=== PATIENT | male | born 1950 | race Caucasian/White ===

== ENCOUNTER → 2017-09-20 | Outpatient (CLI) | payer MEDICARE ==
--- NOTE | 2017-09-20 17:44 | ECHOF ---
Referral Reason:E78.5 Hyperlipidemia I25.1Coronary Artery Disease MEASUREMENTS -------- HEIGHT: 172.7 cm WEIGHT: 90.7 kg BP: IVSd: 1.1 cm (0.6 - 1.1) LVIDd: 5.0 cm (3.9 - 5.3) LVPWd: 1.2 cm (0.6 - 1.1) IVSs: 1.4 cm LVIDs: 4.1 cm LVPWs: 1.4 cm LAESV Index (A-L): 30.58 ml/m Ao Diam: 3.3 cm (2.0 - 3.7) AV Cusp: 1.5 cm (1.5 - 2.6) LA Diam: 4.3 cm (2.7 - 3.8) MV EXCURSION: 19.436 mm (> 18.000) MV EF SLOPE: 101 mm/s (70 - 150) EPSS: 1.5 cm MV E Walter: 0.80 m/s MV DecT: 178 ms MV A Walter: 0.63 m/s MV E/A Ratio: 1.26 RAP: 5.00 mmHg RVSP: 32.38 mmHg FINDINGS -------- Sinus rhythm. This was a technically adequate study. The left ventricular size is normal. There is borderline concentric left ventricular hypertrophy. Overall left ventricular systolic function is normal with, an EF between 55 - 60 %. The right ventricle is normal in size. LA is midly dilated 29-33ml/m2. The right atrial size is normal. There is mild aortic valve sclerosis. There is no evidence of aortic regurgitation. The mitral valve is normal. Mild mitral regurgitation is present. Mild tricuspid regurgitation present. There is no evidence of pulmonary hypertension. The right v entricular systolic pressure, as measured by Doppler, is 32.38mmHg. There is no pulmonic regurgitation present. The aortic root size is normal. There is no pericardial effusion. CONCLUSIONS -------- 1. Sinus rhythm. 2. The left ventricular size is normal. 3. There is borderline concentric left ventricular hypertrophy. 4. Overall left ventricular systolic function is normal with, an EF between 55 - 60 %. 5. LA is midly dilated 29-33ml/m2. 6. There is mild aortic valve sclerosis. 7. Mild mitral regurgitation is present. 8. Mild tricuspid regurgitation present. 9. There is no evidence of pulmonary hypertension. 10. There is no pulmonic regurgitation present. 11. The aortic root size is normal. 12. There is no pericardial effusion. JEWEL WAXER: Keyana Reed RDCS
--- NOTE | 2017-09-20 18:34 | P.STRESS ---
- Stress Test Note Stress Test Results/Findings: Exam Performed: stress test Exam Date: 09/20/17 Reason for Exam: CAD Height: 5 ft 8 in Weight: 90.718 kg Protocol: Arnel Stage: 1 Duration of Exercise: 4:30 Resting Heart Rate: 61 Resting Blood Pressure: 144/77 Maximum Achieved Heart Rate: 133 Maximum Achieved Blood Pressure: 195/69 85% PMHR: 128 100% PMHR: 151 METS: 6.4 Technologist Comment: Stress Test Results/Findings: This 67-year-old gentleman. He is being evaluated for cardiac status. Patient has history of hypertension and hypercholesterolemia. Baseline EKG showed sinus rhythm with normal [place] interval, QRS duration. Blood pressure at rest is 144/77 with pulse rate of 61. Patient walked on the Arnel protocol for 4 minutes and 30 seconds achieving a maximal heart rate of 133 with a blood pressure 180/73. EKGs taken during and after the x-ray did not reveal any changes to sized ischemia. Final impression #1. Negative stress test #2 patient did not express any chest pain #3. No arrhythmias were detected #4 patient. Excess capacity is fair.
--- NOTE | 2017-09-24 11:22 | EST ---
- Stress Test Note Stress Test Results/Findings: Exam Performed: stress test Exam Date: 09/20/17 Reason for Exam: CAD Height: 5 ft 8 in Weight: 90.718 kg Protocol: Arnel Stage: 1 Duration of Exercise: 4:30 Resting Heart Rate: 61 Resting Blood Pressure: 144/77 Maximum Achieved Heart Rate: 133 Maximum Achieved Blood Pressure: 195/69 85% PMHR: 128 100% PMHR: 151 METS: 6.4 Technologist Comment: Stress Test Results/Findings: This 67-year-old gentleman. He is being evaluated for cardiac status. Patient has history of hypertension and hypercholesterolemia. Baseline EKG showed sinus rhythm with normal [place] interval, QRS duration. Blood pressure at rest is 144/77 with pulse rate of 61. Patient walked on the Arnel protocol for 4 minutes and 30 seconds achieving a maximal heart rate of 133 with a blood pressure 180/73. EKGs taken during and after the x-ray did not reveal any changes to sized ischemia. Final impression #1. Negative stress test #2 patient did not express any chest pain #3. No arrhythmias were detected #4 patient. Excess capacity is fair. MTDD
== END | disposition home or self-care (01) ==
LOC: RADNMMAIN 10:20
PROVIDERS: ATTEND Family Medicine
DX: I08.1 Rheumatic disorders of both mitral and tricuspid valves (principal); E78.5 Hyperlipidemia, unspecified; I25.10 Atherosclerotic heart disease of native coronary artery without angina pectoris
CPT/HCPCS: 93017; 93306

== ENCOUNTER → 2020-05-26 | Outpatient (CLI) | payer MEDICARE | END | disposition home or self-care (01) | LOC: LABWHC1 11:52 | PROVIDERS: ATTEND Family Medicine | DX: Z03.818 Encounter for observation for suspected exposure to other biological agents ruled out (principal) | CPT/HCPCS: U0003; C9803 ==

== ENCOUNTER → 2020-11-15 | Outpatient (CLI) | payer MEDICARE | END | disposition home or self-care (01) | LOC: LABWHC1 10:26 | PROVIDERS: ATTEND Family Medicine | DX: R60.0 Localized edema (principal) | CPT/HCPCS: 36415; 83880; 85379 ==

== ENCOUNTER → 2020-12-15 | Outpatient (CLI) | payer MEDICARE ==
--- NOTE | 2021-01-16 14:27 | EST ---
EVENT MONITOR The patient was monitored between December 15 and 13 January 2021. The rhythm strip revealed sinus mechanism with normal conduction. There was no episode of atrial fibrillation or ventricular tachycardia. No pauses were noted. MMSONJA / PARISN: [id number] / MTDD
== END | disposition home or self-care (01) ==
LOC: RADECHMAIN 11:47
PROVIDERS: ATTEND Family Medicine
DX: I49.9 Cardiac arrhythmia, unspecified (principal)
CPT/HCPCS: 93270

== ENCOUNTER 2021-02-26 06:54 | Observation (INO) | payer MEDICARE ==
[2021-02-26] MEDS ORDERED: DILTIAZEM DRIP BOLUS FROM BAG 1 MG SOLN IV ONE (07:14)
--- NOTE | 2021-02-26 07:14 | ED ---
Chest Pain HPI - General Chief Complaint: Chest Pain Stated Complaint: Chest pain Time Seen by Provider: 02/26/21 07:00 Source: patient, EMS Mode of arrival: EMS Limitations: no limitations - History of Present Illness Initial Comments: Patient is a 70-year-old male with past medical history of paroxysmal A. fib who presents emergency Department with reported chest pain. States that it woke him from sleep at 5 AM this morning area and he did take a 325 aspirin and his beta addie. States that the pain persisted and therefore he called EMS. Described as a substernal pressure with radiation into his left shoulder. Reports a history of an NM in 1995 but had a clean cath at that time. He has not followed up with a senior energy market coordinator since. States that his A. fib is managed by his primary care doctor. He is not on any anticoagulation at this time. He denies any contraindication to anticoagulation. No history of hemorrhagic strokes or bleeding peptic ulcers. EMS provided the patient with the nitro and he states that his discomfort is completely gone at this time. He denies any fevers, chills or cough. No ripping or tearing sensation to his back. He denies any headaches, visual changes or recent head trauma. No other alleviating, precipitating or modifying factors - Related Data Home Medications Medication Instructions Recorded Confirmed Allopurinol [Zyloprim] 100 mg PO DAILY 02/26/21 02/26/21 Aspirin EC [Ecotrin] 325 mg PO DAILY 02/26/21 02/26/21 Bisoprolol/Hydrochlorothiazide 1 tab PO DAILY 02/26/21 02/26/21 [Bisoprolol/Hydrochlorothiazide 10-6.25 mg] Furosemide [Lasix] 20 mg PO DAILY 02/26/21 02/26/21 Levothyroxine Sodium [Synthroid] 25 mcg PO DAILY 02/26/21 02/26/21 Losartan Potassium 100 mg PO DAILY 02/26/21 02/26/21 Potassium Chloride ER [K-Dur 20] 20 meq PO DAILY 02/26/21 02/26/21 Tamsulosin [Flomax] 0.4 mg PO DAILY 02/26/21 02/26/21 Previous Rx's Medication Instructions Recorded Apixaban [Eliquis] 5 mg PO BID tab 02/27/21 Apixaban [Eliquis] 5 mg PO BID #60 tab 02/27/21 Allergies Allergy/AdvReac Type Severity Reaction Status Date / Time Penicillins Allergy Anaphylaxis Verified 02/26/21 09:46 sulfamethoxazole Allergy Anaphylaxis Verified 02/26/21 09:46 [From Bactrim] trimethoprim [From Bactrim] Allergy Anaphylaxis Verified 02/26/21 09:46 Review of Systems ROS Statement: Those systems with pertinent positive or pertinent negative responses have been documented in the HPI. ROS Other: All systems not noted in ROS Statement are negative. EKG Findings - EKG Comments: EKG Findings:: EKG at 7:06 am demonstrates A. fib with a ventricular rate of 152. QRS 104. QTC 480. No acute ST segment elevations. Mild ST depression in the anterior lateral leads likely rate dependent. Repeat EKG conducted at 723 demonstrates that the patient has converted to normal sinus rhythm. Rate of 69. LA interval 150. QRS 106. QTC of 432. No acute ST segment elevation. Inverted T-wave with some ST depression in lead 3 Past Medical History Past Medical History: Atrial Fibrillation, Hypertension, Myocardial Infarction ([place]) History of Any Multi-Drug Resistant Organisms: None Reported Past Surgical History: Cholecystectomy, Heart Catheterization Past Psychological History: No Psychological Hx Reported Smoking Status: Never smoker Past Alcohol Use History: None Reported Past Drug Use History: None Reported General Exam Limitations: no limitations General appearance: alert, in no apparent distress Head exam: Present: atraumatic, normocephalic, normal inspection Eye exam: Present: normal appearance, PERRL, EOMI. Absent: scleral icterus, conjunctival injection, periorbital swelling ENT exam: Present: normal exam, mucous membranes moist Neck exam: Present: normal inspection. Absent: tenderness, meningismus, lymphadenopathy Respiratory exam: Present: normal lung sounds bilaterally. Absent: respiratory distress, wheezes, rales, rhonchi, stridor Cardiovascular Exam: Present: tachycardia, irregular rhythm, normal heart sounds. Absent: systolic murmur, diastolic murmur, rubs, gallop, clicks GI/Abdominal exam: Present: soft, normal bowel sounds. Absent: distended, tenderness, guarding, rebound, rigid Extremities exam: Present: normal inspection, full ROM, normal capillary refill. Absent: tenderness, pedal edema, joint swelling, calf tenderness Back exam: Present: normal inspection Neurological exam: Present: alert, oriented X3, CN II-XII intact Psychiatric exam: Present: normal affect, normal mood Skin exam: Present: warm, dry, intact, normal color. Absent: rash Course Vital Signs 02/26/21 02/26/21 02/26/21 06:58 07:22 07:54 Temperature 99.1 F Pulse Rate 146 H 66 68 Pulse Rate [ Right Supine] Respiratory 18 18 Rate Blood Pressure 137/90 157/85 O2 Sat by Pulse 96 98 Oximetry 02/26/21 02/26/21 02/26/21 09:05 09:28 09:37 Temperature Pulse Rate 60 55 L Pulse Rate [ 55 L Right Supine] Respiratory 18 16 18 Rate Blood Pressure 154/84 149/97 O2 Sat by Pulse 98 98 Oximetry Chest Pain MDM - MDM Upon arrival patient is placed into room 1. Thorough history and physical exam was performed. He has already taken a full dose aspirin. Nitro was provided by EMS. Patient is pain-free at this time. 12-lead EKG was performed which demonstrates A. fib with a rapid ventricular rate of 160. IV is established. Cardizem bolus and Cardizem drip is ordered. Lab studies conducted and the patient is sent for chest x-ray. Laboratory studies are reviewed. First troponin is negative. TSH 4.4. Chest x-ray demonstrated some linear atelectasis. Patient does convert on his own without medication administration. He has no contraindications to anticoagulation and therefore he is placed on a heparin drip. I recommended hospital admission to trend serial troponins. Patient has already taken his beta addie at home. He agreed to this. I spoke with Dr. Funk who agreed to admit the patient. Cardiology will be placed on consult. He is currently awaiting a bed on the floor Critical Care Time Critical Care Time: Yes Critical Care Time: 32 minutes Disposition Clinical Impression: Chest pain, Atrial fibrillation with RVR Disposition: ADMITTED IP TO THIS HOSP Condition: Stable Is patient prescribed a controlled substance at d/c from ED?: No Decision to Admit Reason: Admit from EC Decision Date: 02/26/21 Decision Time: 09:07
[2021-02-26] MEDS ORDERED: DILTIAZEM 125 MG in SODIUM CHLORIDE 0.9% 100 ML IV SCH (07:15)
[2021-02-26 07:30] LABS: Basophils # (A) 0.1 k/uL (0-0.2); Basophils % (A) 1 %; Eosinophils # (A) 0.1 k/uL (0-0.7); Eosinophils % (A) 2 %; HCT 46.3 % (39.0-53.0); Lymphocytes # (A) 2.4 k/uL (1.0-4.8); Lymphocytes % (A) 26 %; MCH 34.3 pg (25.0-35.0); MCHC 34.6 g/dL (31.0-37.0); MCV 99.1 fL (80.0-100.0); Mean Platelet Volume 8.1; Monocytes # (A) 0.6 k/uL (0-1.0); Monocytes % (A) 7 %; Neutrophils # (A) 5.8 k/uL (1.3-7.7); Neutrophils % (A) 62 %; Platelet Count 210 k/uL (150-450); RBC 4.67 m/uL (4.30-5.90); RDW 12.3 % (11.5-15.5); WBC 9.3 k/uL (3.8-10.6)
[2021-02-26 07:41] LABS: INR 0.9 (<1.2); Partial Thromboplastin Time 22.7 sec (22.0-30.0); Prothrombin Time 9.8 sec (9.0-12.0)
--- NOTE | 2021-02-26 07:45 | XR ---
EXAMINATION TYPE: XR chest 2V DATE OF EXAM: 02/26/2021 COMPARISON: 12/23/2009 HISTORY: 70 years Male. STUDY INDICATION GIVEN: Chest Pain . TECHNIQUE: Posterior anterior and lateral chest radiographs FINDINGS AND IMPRESSION: Lungs are mildly hyperinflated. Patchy and linear opacities greater in the left lower lobe, probably on the basis of atelectasis, lef t lower lobe pneumonia cannot be entirely excluded.. No pneumothorax or pleural effusion. Cardiomediastinal silhouette normal in size. Generalized osteopenia. Degenerative changes noted in the spine.
[2021-02-26 07:53] LABS: Albumin 4.1 g/dL (3.5-5.0); Calcium 9.5 mg/dL (8.4-10.2); Total Bilirubin 0.8 mg/dL (0.2-1.3); Total Protein 6.6 g/dL (6.3-8.2)
[2021-02-26 08:23] LABS: Potassium 4.1 mmol/L (3.5-5.1)
[2021-02-26] MEDS ORDERED: HEPARIN SODIUM 1,000 UN/ML (10ML VL) IV PRN (08:35)
[2021-02-26] MEDS ORDERED: HEPARIN SODIUM 1,000 UN/ML (10ML VL) IV ONE (08:35)
[2021-02-26] MEDS: HEPARIN SOD,PORK IN 0.45% NACL 25,000 UNIT in 0.45% NACL 1 250ML.BAG IV SCH (08:53)
[2021-02-26] MEDS ORDERED: NALOXONE 0.4 MG/ML 1 ML VIAL IV PRN (09:07)
[2021-02-26] MEDS ORDERED: BISOPROLOL-HCTZ 10-6.25 MG 1 EACH TAB PO SCH (10:15)
--- NOTE | 2021-02-26 11:14 | P.HPIM ---
History of Present Illness H&P Date: 02/26/21 HISTORY OF PRESENT ILLNESS This is a 70-year-old male patient of Dr. Cline with past medical history of hypertension, hyperlipidemia, benign prostatic hypertrophy, chronic gout and hypothyroidism. Patient states that about one month ago he was placed on thyroid medication. He denies any alcohol use, caffeine use, use of inhalers. No marijuana use and no history of obstructive sleep apnea but he states he may have this. Patient states he also has history of atrial fibrillation the first occurring about 20 years ago. He's also had an episode 3 years ago but has not seen a station air traffic control specialist for 3-4 years. He did recently have a 30 day event monitor on which not did not show any signs of atrial fibrillation. Patient states he developed palpitations in his heart rate was in the 160s and he woke up with this. He states he also had some chest pain. Patient presented to [facility] emergency center for evaluation. EKG initially was atrial fibrillation with heart rate of 152 and repeat was in normal sinus rhythm at a heart rate of 69. Otherwise, patient was afebrile, blood pressure 137/90, pulse ox 96% on room air. CBC was unremarkable. INR 0.9. Sodium 135, potassium 4.1, chloride 104, CO2 21, BUN 22 and creatinine 1.15. Blood sugar 121. Magnesium 2.0. Liver function tests were normal. Troponin negative. ProBNP 424. TSH 4.410. Patient placed in the observation unit, started on heparin drip and cardiology consult requested. REVIEW OF SYSTEMS Constitutional: No fever, no chills, no night sweats. No weight change. No weakness, fatigue or lethargy. No daytime sleepiness. EENT: No headache. No blurred vision or double vision, no loss of vision. No loss of Hearing, no ringing in the ears, no dizziness. No nasal drainage or congestion. No epistaxis. No sore throat. Lungs: No shortness of breath, cough, no sputum production. No wheezing. Cardiovascular: Reported chest pain, no lower extremity edema. Reported palpitations. No paroxysmal nocturnal dyspnea. No orthopnea. No lightheade dness or dizziness. No syncopal episodes. Abdominal: No abdominal pain. No nausea, vomiting. No diarrhea. No constipation. No bloody or tarry stools.. No loss of appetite. Genitourinary: No dysuria, increased frequency, urgency. No urinary retention. Musculoskeletal: No myalgias. No muscle weakness, no gait dysfunction, no frequent falls. No back pain. No neck pain. Integumentary: No wounds, no lesions. No rash or pruritus. No unusual bruising. No change in hair or nails. Neurologic: No aphasia. No facial droop. No change in mentation. No head injury. No headache. No paralysis. No paresthesia. Psychiatric: No depression. No anxiety. No mood swings. Endocrine: No abnormal blood sugars. No weight change. SOCIAL HISTORY Patient is a lifelong nonsmoker, no illicit drug use, marijuana use, alcohol use. FAMILY HISTORY Mother at a young age from breast cancer. Father from colon cancer. Patient has 2 sisters have passed from breast cancer. He has one brother with history of heart failure and other cardiac issues. Patient does not have any sense. He has one daughter with history of achalasia. PHYSICAL EXAMINATION Gen: This is a 70-year-old obese male. He is resting on the edge of the bed and appears to be comfortable and in no acute distress. HEENT: Head is atraumatic, normocephalic. Pupils equal, round. Sclerae is anicteric. NECK: Supple. No JVD. No lymphadenopathy. No thyromegaly. LUNGS: Clear to auscultation. No wheezes or rhonchi. No intercostal retractions. HEART: Regular rate and rhythm. No murmur. ABDOMEN: Soft. Bowel sounds are present. No masses. No tenderness. EXTREMITIES: No pedal edema. No calf tenderness. Dorsalis pedis +2 bilaterally. NEUROLOGICAL: Patient is awake, alert and oriented x3. Cranial nerves 2 through 12 are grossly intact. ASSESSMENT AND PLAN 1. Atrial fibrillation with RVR, paroxysmal atrial fibrillation. Patient has converted to sinus rhythm. Patient converted to sinus rhythm on his own. He is currently on heparin drip. Ziac held until seen by cardiology as he most likely will require a different beta adide. 2. Hypertension. Continue losartan 100 mg daily. 3. Hyperlipidemia. Patient is not on statin. 4. Hypothyroidism. Continue levothyroxine 25 micro-grams daily. TSH in normal range. 5. Benign prostatic hypertrophy. Continue Flomax 0.4 mg daily. 6. Chronic gout. Continue allopurinol 100 mg daily. 7. GI prophylaxis. Protonix. 8. DVT prophylaxis. Heparin. Patient placed as an observation status. DISCHARGE PLAN Home in next 24 hours. Impression and plan of care have been directed as dictated by the signing physician. Radha Hawkins nurse practitioner acting as scribe for signing physician. Past Medical History Past Medical History: Atrial Fibrillation, Hypertension, Myocardial Infarction ([place]) History of Any Multi-Drug Resistant Organisms: None Reported Past Surgical History: Cholecystectomy, Heart Catheterization Past Psychological History: No Psychological Hx Reported Smoking Status: Never smoker Past Alcohol Use History: None Reported Past Drug Use History: None Reported Medications and Allergies Home Medications Medication Instructions Recorded Confirmed Type Allopurinol [Zyloprim] 100 mg PO DAILY 02/26/21 02/26/21 History Aspirin EC [Ecotrin] 325 mg PO DAILY 02/26/21 02/26/21 History Bisoprolol/Hydrochlorothiazide 1 tab PO DAILY 02/26/21 02/26/21 History [Bisoprolol/Hydrochlorothiazide 10-6.25 mg] Furosemide [Lasix] 20 mg PO DAILY 02/26/21 02/26/21 History Levothyroxine Sodium [Synthroid] 25 mcg PO DAILY 02/26/21 02/26/21 History Losartan Potassium 100 mg PO DAILY 02/26/21 02/26/21 History Potassium Chloride ER [K-Dur 20] 20 meq PO DAILY 02/26/21 02/26/21 History Tamsulosin [Flomax] 0.4 mg PO DAILY 02/26/21 02/26/21 History Allergies Allergy/AdvReac Type Severity Reaction Status Date / Time Penicillins Allergy Anaphylaxis Verified 02/26/21 09:46 sulfamethoxazole Allergy Anaphylaxis Verified 02/26/21 09:46 [From Bactrim] trimethoprim [From Bactrim] Allergy Anaphylaxis Verified 02/26/21 09:46 Physical Exam Vitals: Vital Signs Temp Pulse Resp BP Pulse Ox 02/26/21 09:05 60 18 154/84 98 02/26/21 07:54 68 18 157/85 98 02/26/21 07:22 66 02/26/21 06:58 99.1 F 146 H 18 137/90 96 Intake and Output 02/25/21 02/26/21 02/26/21 22:59 06:59 14:59 Other: Weight 91.626 kg Results CBC & Chem 7: 02/26/21 07:15 02/26/21 07:15 Labs: Abnormal Lab Results - Last 24 Hours (Table) 02/26/21 Range/Units Unknown Sodium 135 L (137-145) mmol/L Carbon Dioxide 21 L (22-30) mmol/L BUN 22 H (9-20) mg/dL Glucose 121 H (74-99) mg/dL
[2021-02-26] MEDS: LOSARTAN 50 MG TAB PO SCH (11:30)
[2021-02-27 02:41] VITALS: RESP 16
[2021-02-27 06:04] LABS: Prothrombin Time 10.7 sec (9.0-12.0)
[2021-02-27] MEDS: HEPARIN SOD,PORK IN 0.45% NACL 25,000 UNIT in 0.45% NACL 1 250ML.BAG IV SCH (06:06)
[2021-02-27] MEDS ORDERED: LEVOTHYROXINE 25 MCG TAB PO SCH (06:30)
[2021-02-27] MEDS ORDERED: PANTOPRAZOLE 40 MG TABLET PO SCH (07:30)
[2021-02-27 07:36] VITALS: BP 155/67; PULSE 53; TEMP 98.1
[2021-02-27 09:00] LABS: Basophils # (A) 0.08 X 10*3/uL (0.00-0.10); Basophils % (A) 0.8 %; Eosinophils # (A) 0.07 X 10*3/uL (0.04-0.35); Eosinophils % (A) 0.7 %; HGB 13.7 g/dL (13.0-17.0); Lymphocytes # (A) 2.63 X 10*3/uL (0.90-5.00); Lymphocytes % (A) 27.7 %; MCH 32.9 pg (27.0-32.0); MCHC 33.4 g/dL (32.0-37.0); MCV 98.6 fL (80.0-97.0); Mean Platelet Volume 10.7 fL (9.5-12.2); Monocytes # (A) 0.91 X 10*3/uL (0.20-1.00); Monocytes % (A) 9.6 %; Neutrophils # (A) 5.77 X 10*3/uL (1.80-7.70); Neutrophils % (A) 60.8 %; Platelet Count 203 X 10*3/uL (140-440); RBC 4.16 X 10*6/uL (4.40-5.60); RDW 11.9 % (11.5-14.5)
[2021-02-27] MEDS ORDERED: FUROSEMIDE 20 MG TAB PO SCH (09:00)
[2021-02-27] MEDS ORDERED: allopurinoL 100 MG TAB PO SCH (09:00)
[2021-02-27] MEDS: LOSARTAN 50 MG TAB PO SCH (09:26)
[2021-02-27 09:51] LABS: African American GFR (CKD) 77.3 (60.0-200.0); Anion Gap 8.2 mmol/L (4.00-12.00); BUN/Creat Ratio 14.55 Ratio (12.00-20.00); Calcium 8.6 mg/dL (8.7-10.3); Carbon Dioxide 23.8 mmol/L (21.6-31.8); Non-African American GFR(CKD) 66.7 (60.0-200.0); Potassium 4.4 mmol/L (3.5-5.5)
[2021-02-27] MEDS ORDERED: APIXABAN 5 MG TAB PO SCH (10:00)
[2021-02-27] MEDS ORDERED: BISOPROLOL-HCTZ 10-6.25 MG 1 EACH TAB PO SCH (10:00)
--- NOTE | 2021-02-27 10:01 | ECHOF ---
Referral Reason:LV function MEASUREMENTS -------- HEIGHT: 172.7 cm WEIGHT: 91.6 kg BP: 155/67 RVIDd: 3.1 cm (< 3.3) IVSd: 1.3 cm (0.6 - 1.1) LVIDd: 4.5 cm (3.9 - 5.3) LVPWd: 1.3 cm (0.6 - 1.1) IVSs: 1.3 cm LVIDs: 2.8 cm LVPWs: 1.7 cm LAESV Index (A-L): 45.13 ml/m Ao Diam: 3.3 cm (2.0 - 3.7) AV Cusp: 1.9 cm (1.5 - 2.6) LA Diam: 4.8 cm (2.7 - 3.8) MV EXCURSION: 13.261 mm (> 18.000) MV EF SLOPE: 50 mm/s (70 - 150) EPSS: 0.7 cm MV E Walter: 1.28 m/s MV DecT: 266 ms MV A Walter: 0.53 m/s MV E/A Ratio: 2.39 RAP: 5.00 mmHg RVSP: 51.66 mmHg FINDINGS -------- Sinus rhythm. This was a technically difficult study with suboptimal parasternal views. The left ventricular size is normal. There is mild concentric left ventricular hypertrophy. Overa ll left ventricular systolic function is normal with, an EF between 55 - 60 %. Increased Lap Grade II Diastolic Dysfunction. The right ventricle is normal in size. LA is severely dilated >40 ml/m2 The right atrial size is normal. 5.0mg of Lumason was utilized for enhancement of images Interatrial and interventricular septum intact. There is no evidence of aortic regurgitation. There is no evidence of aortic stenosis. Moderate mitral regurgitation is present. Moderate tricuspid regurgitation present. There is moderate to severe pulmonary hypertension. The right ventricular systolic pressure, as measured by Doppler, is 51.66mmHg. There is no pulmonic regurgitation present. The aortic root size is normal. IVC Not well visulized. There is no pericardial effusion. CONCLUSIONS -------- 1. The left ventricular size is normal. 2. There is mild concentric left ventricular hypertrophy. 3. Overall left ventricular systolic function is normal with, an EF between 55 - 60 %. 4. Increased Lap Grade II Diastolic Dysfunction. 5. LA is severely dilated >40 ml/m2 6. Moderate mitral regurgitation is present. 7. Moderate tricuspid regurgitation present. 8. There is moderate to severe pulmonary hypertension. 9. The right ventricular systolic pressure, as measured by Doppler, is 51.66mmHg. MANAGER CRITICAL CARE UNIT: Ju Burden RDCS
--- NOTE | 2021-02-27 10:12 | P.CRDCN ---
History of Present Illness Consult date: 02/27/21 History of present illness: HISTORY OF PRESENT ILLNESS: This is a 70-year-old male with a past medical history significant for hypertension, paroxysmal atrial fibrillation not on anticoagulation. He also reports having a heart attack in 1995 and underwent cardiac catheterization but was told his arteries were normal and did not require any stenting. 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 We have been asked to see the patient in consultation for atrial fibrillation with RVR. Patient examined at the bedside. Patient reports he woke up yesterday morning with palpitations. He states he assumed he was back in atrial fibrillation. He reports that he developed chest pain yesterday while having the palpitations. He states the pain went across to his chest and down his arm. He states in the past when he has had palpitations and episodes of atrial fibrillation he does not develop chest discomfort this with new for him. The patient presented to the emergency room. He has since converted to sinus mechanism. He currently denies chest pain or pressure. Denies shortness of breath. Denies palpitations. EKG reveals A. fib with RVR Chest xray lungs are mildly hyperinflated. Patchy and linear opacities greater in the left lower lobe, probably on the basis of atelectasis, left lower lobe pneumonia cannot be entirely excluded. No pneumothorax or pleural effusion.. Laboratory data: WBC 9.50. Hemoglobin 13.7. Platelet count 203. Sodium 138. Potassium 4.4. BUN 16. Creatinine 1.1. Troponin 0.015. 0.087. 0.073. 0.058. Current home cardiac medications include Ziac 10-6.25mg daily Echocardiogram obtained reveals ejection fraction 55-60%. Moderate mitral regurgitation. Moderate tricuspid regurgitation. Moderate to severe pulmonary hypertension. REVIEW OF SYSTEMS: At the time of my exam: CONSTITUTIONAL: Denies fever or chills. HEENT: Denies blurred vision, vision changes, or eye pain. Denies hemoptysis CARDIOVASCULAR: Denies chest pain. Denies orthopnea. Denies PND. Denies palpitations RESPIRATORY: Denies shortness of breath. GASTROINTESTINAL: Denies abdominal pain. Denies nausea or vomiting. HEMATOLOGIC: Denies bleeding disorders. GENITOURINARY: Denies any blood in urine. SKIN: Denies pruitis. Denies rash. PHYSICAL EXAM: VITAL SIGNS: Reviewed. GENERAL: Well-developed in no acute distress. HEENT: Head is normocephalic. Pupils are equal, round. Sclerae anicteric. Mucous membranes of the mouth are moist. Neck supple. No JVD or thyromegaly LUNGS: Respirations even and unlabored. Lungs essentially clear to auscultation bilaterally. HEART: Regular rate and rhythm. S1 and S2 heard. ABDOMEN: Soft. Nondistended. Nontender. EXTREMITIES: Normal range of motion. No clubbing or cyanosis. Peripheral pulses intact. No lower extremity edema NEUROLOGIC: Awake and alert. Oriented x 3. ASSESSMENT: Paroxysmal atrial fibrillation with RVR, previously not on anticoagulation Chest pain with abnormal troponins, may be secondary to afib with RVR, can not rule out underlying CAD Hypertension History of CT without stenting per patient, 1995 PLAN: 2D echo obtained and reviewed Discontinue IV heparin Begin Eliquis 5mg BID Resume Ziac Discussed cardiac cath versus stress test with patient due to chest pain and abnormal troponins. Patient states he is the primary caregiver for his and there is no one else that can take care of her. He is requesting to be discharged home today and declined to have cardiac cath or stress test performed today. He is to follow up on an outpatient basis with Dr. Cruz. Nurse practitioner note has been reviewed by physician. Signing provider agrees with the documented findings, assessment, and plan of care. Past Medical History Past Medical History: Atrial Fibrillation, Hypertension, Myocardial Infarction (CT) Last Myocardial Infarction Date:: 1995 History of Any Multi-Drug Resistant Organisms: None Reported Past Surgical History: Cholecystectomy, Heart Catheterization Past Psychological History: No Psychological Hx Reported Smoking Status: Never smoker Past Alcohol Use History: None Reported Past Drug Use History: None Reported Medications and Allergies Home Medications Medication Instructions Recorded Confirmed Type Allopurinol [Zyloprim] 100 mg PO DAILY 02/26/21 02/26/21 History Aspirin EC [Ecotrin] 325 mg PO DAILY 02/26/21 02/26/21 History Bisoprolol/Hydrochlorothiazide 1 tab PO DAILY 02/26/21 02/26/21 History [Bisoprolol/Hydrochlorothiazide 10-6.25 mg] Furosemide [Lasix] 20 mg PO DAILY 02/26/21 02/26/21 History Levothyroxine Sodium [Synthroid] 25 mcg PO DAILY 02/26/21 02/26/21 History Losartan Potassium 100 mg PO DAILY 02/26/21 02/26/21 History Potassium Chloride ER [K-Dur 20] 20 meq PO DAILY 02/26/21 02/26/21 History Tamsulosin [Flomax] 0.4 mg PO DAILY 02/26/21 02/26/21 History Apixaban [Eliquis] 5 mg PO BID #60 tab 02/27/21 Rx Allergies Allergy/AdvReac Type Severity Reaction Status Date / Time Penicillins Allergy Anaphylaxis Verified 02/26/21 09:46 sulfamethoxazole Allergy Anaphylaxis Verified 02/26/21 09:46 [From Bactrim] trimethoprim [From Bactrim] Allergy Anaphylaxis Verified 02/26/21 09:46 Physical Exam Vitals: Vital Signs Temp Pulse Pulse Resp BP Pulse Ox 02/27/21 07:00 98.1 F 53 L 16 155/67 97 02/27/21 00:37 98.0 F 60 16 133/72 97 02/26/21 19:02 98.2 F 62 15 147/68 94 L 02/26/21 15:00 97.7 F 63 16 158/75 99 02/26/21 11:29 55 L 16 02/26/21 10:48 98.2 F 60 16 161/74 98 Intake and Output 02/26/21 02/27/21 02/27/21 22:59 06:59 14:59 Intake Total 84 151.659 Balance 84 151.659 Intake: Intake, IV Titration 84 151.659 Amount Heparin Sod,Pork in 0.45% 84 151.659 NaCl 25,000 unit In 0.45 % NaCl 1 250ml.bag @ 10. 914 UNITS/KG/HR 10 mls/hr IV .Q24H [facility] Rx#: [id number] Other: Voiding Method Toilet Toilet # Voids 1 1 Results 02/27/21 05:38 02/27/21 05:38 Cardiac Enzymes 02/26/21 02/26/21 02/26/21 Range/Units 11:41 14:16 17:08 Troponin I 0.087 H* 0.073 H* 0.058 H* (0.000-0.034) ng/mL Coagulation 02/26/21 02/26/21 02/27/21 Range/Units 14:16 23:31 05:38 PT 10.7 (9.0-12.0) sec APTT 40.9 H 45.3 H (22.0-30.0) sec CBC 02/27/21 Range/Units 05:38 WBC 9.50 (4.50-10.00) X 10*3/uL RBC 4.16 L (4.40-5.60) X 10*6/uL Hgb 13.7 (13.0-17.0) g/dL Hct 41.0 (39.6-50.0) % Plt Count 203 (140-440) X 10*3/uL Comprehensive Metabolic Panel 02/27/21 Range/Units 05:38 Sodium 138 (135-145) mmol/L Potassium 4.4 (3.5-5.5) mmol/L Chloride 106 (96-109) mmol/L Carbon Dioxide 23.8 (21.6-31.8) mmol/L BUN 16.0 (9.0-27.0) mg/dL Creatinine 1.1 (0.6-1.5) mg/dL Glucose 110 (70-110) mg/dL Calcium 8.6 L (8.7-10.3) mg/dL Current Medications Generic Name Dose Route Start Last Admin Trade Name Freq PRN Reason Stop Dose Admin Allopurinol 100 mg 02/27/21 09:00 02/27/21 09:26 Allopurinol 100 Mg Tab PO 100 mg DAILY JOSE Administration Apixaban 5 mg 02/27/21 10:00 Apixaban 5 Mg Tab PO BID [facility] Protocol Bisoprolol Fumarate 1 each 02/27/21 10:00 Bisoprolol-Hctz 10-6.25 Mg 1 Each Tab PO DAILY JOSE Furosemide 20 mg 02/27/21 09:00 02/27/21 09:26 Furosemide 20 Mg Tab PO 20 mg DAILY JOSE Administration Levothyroxine Sodium 25 mcg 02/27/21 06:30 02/27/21 05:41 Levothyroxine 25 Mcg Tab PO 25 mcg DAILY@0630 JOSE Administration Losartan Potassium 100 mg 02/26/21 10:15 02/27/21 09:26 Losartan 50 Mg Tab PO 100 mg DAILY JOSE Administration Naloxone HCl 0.2 mg 02/26/21 09:07 Naloxone 0.4 Mg/Ml 1 Ml Vial IV Q2M PRN Opioid Reversal Pantoprazole Sodium 40 mg 02/27/21 07:30 02/27/21 09:26 Pantoprazole 40 Mg Tablet PO 40 mg [id number] [facility] Administration Intake and Output 02/26/21 02/27/21 02/27/21 22:59 06:59 14:59 Intake Total 84 151.659 Balance 84 151.659 Intake: Intake, IV Titration 84 151.659 Amount Heparin Sod,Pork in 0.45% 84 151.659 NaCl 25,000 unit In 0.45 % NaCl 1 250ml.bag @ 10. 914 UNITS/KG/HR 10 mls/hr IV .Q24H [facility] Rx#: [id number] Other: Voiding Method Toilet Toilet # Voids 1 1 02/27/21 05:38 02/27/21 05:38
--- NOTE | 2021-02-27 13:31 | P.DS ---
Providers Date of admission: 02/26/21 09:07 Expected date of discharge: 02/27/21 Attending physician: Lily Funk Consults: 02/26/21 09:11 Consult Physician Urgent Consulting Provider: [facility] Consult Reason/Comments: acute chest pain, possible acs, afib with rvr Do you want consulting provider notified?: Yes [facility]: HISTORY OF PRESENT ILLNESS This is a 70-year-old male patient of Dr. Cline with past medical history of hypertension, hyperlipidemia, benign prostatic hypertrophy, chronic gout and hypothyroidism. Patient states that about one month ago he was placed on thyroid medication. He denies any alcohol use, caffeine use, use of inhalers. No marijuana use and no history of obstructive sleep apnea but he states he may have this. Patient states he also has history of atrial fibrillation the first occurring about 20 years ago. He's also had an episode 3 years ago but has not seen a sales planner for 3-4 years. He did recently have a 30 day event monitor on which not did not show any signs of atrial fibrillation. Patient states he developed palpitations in his heart rate was in the 160s and he woke up with this. He states he also had some chest pain. Patient presented to [facility] emergency center for evaluation. EKG initially was atrial fibrillation with heart rate of 152 and repeat was in normal sinus rhythm at a heart rate of 69. Otherwise, patient was afebrile, blood pressure 137/90, pulse ox 96% on room air. CBC was unremar kable. INR 0.9. Sodium 135, potassium 4.1, chloride 104, CO2 21, BUN 22 and creatinine 1.15. Blood sugar 121. Magnesium 2.0. Liver function tests were normal. Troponin negative. ProBNP 424. TSH 4.410. Patient placed in the observation unit, started on heparin drip and cardiology consult requested. 02/27: Patient is not having the palpitations today, patient remained sinus rhythm, no new medications from cardiology except for a crease, for atrial fibrillation paroxysmal, 5 mg twice a day dispense. Medication is now on bedside, patient to see for follow-up, cardiology Dr. Cruz, we will set up sleep study for him to see Dr. Rodarte, requiring a sleep study, as well as treatment of pulmonary hypertension, patient's without any chest pain, no palpitations. Echocardiogram EF is 55-60%, with moderate pulmonary hypertension, discharge today, on stable condition, without any palpitations no chest pain. No lightheadedness no dizziness. No melena and hematochezia no neurologic changes, follow up with PCP, and Dr. Aster Hernandez REVIEW OF SYSTEMS Constitutional: No fever, no chills, no night sweats. No weight change. No weakness, fatigue or lethargy. No daytime sleepiness. EENT: No headache. No blurred vision or double vision, no loss of vision. No loss of Hearing, no ringing in the ears, no dizziness. No nasal drainage or congestion. No epistaxis. No sore throat. Lungs: No shortness of breath, cough, no sputum production. No wheezing. Cardiovascular: Reported chest pain, no lower extremity edema. Reported palpitations no nasal discharge. No paroxysmal nocturnal dyspnea. No orthopnea. No lightheadedness or dizziness. No syncopal episodes. Abdominal: No abdominal pain. No nausea, vomiting. No diarrhea. No constipation. No bloody or tarry stools.. No loss of appetite. Genitourinary: No dysuria, increased frequency, urgency. No urinary retention. Musculoskeletal: No myalgias. No muscle weakness, no gait dysfunction, no frequent falls. No back pain. No neck pain. Integumentary: No wounds, no lesions. No rash or pruritus. No unusual bruising. No change in hair or nails. Neurologic: No aphasia. No facial droop. No change in mentation. No head injury. No headache. No paralysis. No paresthesia. Psychiatric: No depression. No anxiety. No mood swings. Endocrine: No abnormal blood sugars. No weight change. FINAL DIAGNOSIS . Atrial fibrillation with RVR, paroxysmal atrial fibrillation with chest pain ruled out SD. Patient has converted to sinus rhythm. Patient converted to sinus rhythm on his own. He is currently on heparin drip. Ziac held until seen by cardiology as he most likely will require a different beta addie. 2. Hypertension. Continue losartan 100 mg daily. 3. Hyperlipidemia. Patient is not on statin. 4. Hypothyroidism. Continue levothyroxine 25 micro-grams daily. TSH in normal range. 5. Benign prostatic hypertrophy. Continue Flomax 0.4 mg daily. 6. Chronic gout. Continue allopurinol 100 mg daily. 7. GI prophylaxis. Protonix. 8. DVT prophylaxis. Heparin. Discharge Medication List Allopurinol [Zyloprim] 100 mg PO DAILY 02/26/21 [History] Aspirin EC [Ecotrin] 325 mg PO DAILY 02/26/21 [History] Bisoprolol/Hydrochlorothiazide [Bisoprolol/Hydrochlorothiazide 10-6.25 mg] 1 tab PO DAILY 02/26/21 [History] Furosemide [Lasix] 20 mg PO DAILY 02/26/21 [History] Levothyroxine Sodium [Synthroid] 25 mcg PO DAILY 02/26/21 [History] Losartan Potassium 100 mg PO DAILY 02/26/21 [History] Potassium Chloride ER [K-Dur 20] 20 meq PO DAILY 02/26/21 [History] Tamsulosin [Flomax] 0.4 mg PO DAILY 02/26/21 [History] Apixaban [Eliquis] 5 mg PO BID tab 02/27/21 [Rx] Apixaban [Eliquis] 5 mg PO BID #60 tab 02/27/21 [Rx] Patient Condition at Discharge: Stable Plan - Discharge Summary Discharge Rx Participant: No New Discharge Prescriptions: New Apixaban [Eliquis] 5 mg PO BID #60 tab Apixaban [Eliquis] 5 mg PO BID tab Continue Aspirin EC [Ecotrin] 325 mg PO DAILY Bisoprolol/Hydrochlorothiazide [Bisoprolol/Hydrochlorothiazide 10-6.25 mg] 1 tab PO DAILY Potassium Chloride ER [K-Dur 20] 20 meq PO DAILY Tamsulosin [Flomax] 0.4 mg PO DAILY Allopurinol [Zyloprim] 100 mg PO DAILY Furosemide [Lasix] 20 mg PO DAILY Levothyroxine Sodium [Synthroid] 25 mcg PO DAILY Losartan Potassium 100 mg PO DAILY Discharge Medication List Allopurinol [Zyloprim] 100 mg PO DAILY 02/26/21 [History] Aspirin EC [Ecotrin] 325 mg PO DAILY 02/26/21 [History] Bisoprolol/Hydrochlorothiazide [Bisoprolol/Hydrochlorothiazide 10-6.25 mg] 1 tab PO DAILY 02/26/21 [History] Furosemide [Lasix] 20 mg PO DAILY 02/26/21 [History] Levothyroxine Sodium [Synthroid] 25 mcg PO DAILY 02/26/21 [History] Losartan Potassium 100 mg PO DAILY 02/26/21 [History] Potassium Chloride ER [K-Dur 20] 20 meq PO DAILY 02/26/21 [History] Tamsulosin [Flomax] 0.4 mg PO DAILY 02/26/21 [History] Apixaban [Eliquis] 5 mg PO BID tab 02/27/21 [Rx] Apixaban [Eliquis] 5 mg PO BID #60 tab 02/27/21 [Rx] Follow up Appointment(s)/Referral(s): Ion Cline DO [Primary Care Provider] - 1-2 days Abdirizak Rodarte MD [STAFF PHYSICIAN] - 1 Week (sleep study and pulmonary hypertension eval/tx) Elie Cruz MD [STAFF PHYSICIAN] - 1 Week (office will call you with appointment date/time ) Patient Instructions/Handouts: A-fib (Atrial Fibrillation) (DC) Activity/Diet/Wound Care/Special Instructions: activity as tolerated heart healthy diet Discharge Disposition: HOME SELF-CARE
== END 2021-02-27 13:15 | disposition home or self-care (01) ==
LOC: EC 06:54 → 6NMEDSUR 09:07
PROVIDERS: ADMIT Family Medicine; ATTEND Family Medicine
DX: I48.0 Paroxysmal atrial fibrillation (principal); I10 Essential (primary) hypertension; E03.9 Hypothyroidism, unspecified; N40.0 Benign prostatic hyperplasia without lower urinary tract symptoms; M1A.9XX0 Chronic gout, unspecified, without tophus (tophi); I25.2 Old myocardial infarction; E78.5 Hyperlipidemia, unspecified; I27.20 Pulmonary hypertension, unspecified; R00.2 Palpitations; J98.11 Atelectasis; E66.9 Obesity, unspecified; Z68.30 Body mass index [BMI] 30.0-30.9, adult; Z79.01 Long term (current) use of anticoagulants; Z79.82 Long term (current) use of aspirin; Z79.890 Hormone replacement therapy; Z79.899 Other long term (current) drug therapy; Z88.0 Allergy status to penicillin; Z88.2 Allergy status to sulfonamides; Z90.49 Acquired absence of other specified parts of digestive tract; Z80.0 Family history of malignant neoplasm of digestive organs; Z80.3 Family history of malignant neoplasm of breast; Z82.49 Family history of ischemic heart disease and other diseases of the circulatory system
CPT/HCPCS: 99285; 96366 ×2; 93005 ×2; 96376; 96365; 36415; 93306; 83880; 80053; 80048; 84443; 83735; 84484; 85025 ×2; 85610 ×2; 85730 ×2; 71046; G0378 ×2; J1644 ×3; Q9950

== ENCOUNTER → 2021-03-21 | Outpatient (CLI) | payer MEDICARE ==
[2021-03-21 15:14] LABS: HCT 44.4 % (39.0-53.0); HGB 15.6 gm/dL (13.0-17.5); MCH 35.1 pg (25.0-35.0); MCHC 35.1 g/dL (31.0-37.0); Mean Platelet Volume 7.9; Platelet Count 224 k/uL (150-450); RBC 4.44 m/uL (4.30-5.90); RDW 11.8 % (11.5-15.5); WBC 8.6 k/uL (3.8-10.6)
[2021-03-21 15:21] LABS: Potassium 4.1 mmol/L (3.5-5.1)
== END | disposition home or self-care (01) ==
LOC: LABPAT 13:21
PROVIDERS: ATTEND Internal Medicine Cardiovascular Disease
DX: Z01.812 Encounter for preprocedural laboratory examination (principal); R07.9 Chest pain, unspecified
CPT/HCPCS: 36415; 80051; 82565; 84520; 85027

== ENCOUNTER 2021-03-23 06:05 | Day surgery (SDC) | payer MEDICARE ==
[~2021-03-23 06:05] MED LIST: ALPRAZolam 0.25 MG TAB PO PRN; ALPRAZolam 0.5 MG TAB PO PRN; ASPIRIN 325 MG TAB PO STA; HEPARIN SODIUM,PORCINE 10,000 UNIT in SODIUM CHLORIDE 0.9% 1,000 ML IRRIGATION PRN; HEPARIN SODIUM,PORCINE 2,500 UNIT in SODIUM CHLORIDE 0.9% 250 ML IRRIGATION PRN; NITROGLYCERIN SL TABS 0.4 MG TAB SUBLINGUAL PRN; SODIUM CHLORIDE 0.9% 1,000 ML in EMPTY BAG 1 BAG IV ONE
[2021-03-23] MEDS ORDERED: SODIUM CHLORIDE 0.9% 1,000 ML IV ONE (06:19)
[2021-03-23 06:36] VITALS: RESP 16; TEMP 98.5
[2021-03-23] MEDS ORDERED: VERAPAMIL 2.5 MG/ML 2 ML AMP ONE (07:29)
[2021-03-23] MEDS ORDERED: LIDOCAINE 1% INJ 10MG/ML (20 ML MDV) ONE (07:29)
[2021-03-23] MEDS ORDERED: fentaNYL (PF) 50 MCG/ML 2 ML AMP ONE (07:40)
[2021-03-23] MEDS ORDERED: fentaNYL (PF) 50 MCG/ML 2 ML AMP IV ONE (07:48)
[2021-03-23] MEDS ORDERED: MIDAZOLAM 2 MG/2 ML VIAL IV ONE (07:48)
[2021-03-23] MEDS ORDERED: LIDOCAINE 1% INJ 10MG/ML (10 ML MDV) SQ ONE (07:49)
[2021-03-23] MEDS ORDERED: VERAPAMIL SYRINGE (5 MG/10 ML) INTRAARTER ONE (07:51)
[2021-03-23] MEDS ORDERED: HEPARIN SODIUM 1,000 UN/ML (10ML VL) ONE (07:55)
[2021-03-23] MEDS ORDERED: HEPARIN SODIUM 1,000 UN/ML (10ML VL) IV ONE (07:57)
[2021-03-23] MEDS ORDERED: IOPAMIDOL-370 125ML BTL INJ ONE (08:07)
[2021-03-23] MEDS ORDERED: RX INFO: IV CONTRAST WAS GIVEN 1 EACH MISC MISCELLANE PRN (08:15)
[2021-03-23] MEDS ORDERED: SODIUM CHLORIDE 0.9% 1,000 ML IV SCH (08:15)
--- NOTE | 2021-03-23 08:22 | P.CARDCATH ---
Date of Procedure: 03/23/21 Preoperative Diagnosis: Paroxysmal atrial fibrillation, history of coronary artery disease and chest pains Postoperative Diagnosis: Minimal coronary artery disease Procedure(s) Performed: Left heart catheterization without left ventriculography Description of Procedure: HISTORY: This is a 70-year-old gentleman with history of paroxysmal atrial fibrillation was recently admitted to the hospital with complaints of chest pain and an episode of atrial fibrillation. Cardiac enzyme studies were negative and EKGs are normal. Patient is advised to have a stress test or cardiac catheterization to rule out underlying ischemic heart disease. Patient has history of questionable myocardial infarction the past, but was not performed having significant obstructive disease. According to him. Patient decided to proceed with cardiac catheterization CONSENT:I have discussed the risks, benefits and alternative therapies for the above-mentioned procedure and for both sedation/analgesia as well as necessary blood product administration, if indicated, as they pertain to this patient. The patient has indicated understanding and acceptance of the risks and procedures discussed. PROCEDURE: Patient was brought to the lab in a fasting state. Patient was given some IV sedation. The right groin is infiltrated with lidocaine and right femoral artery was entered using Seldinger technique. A 6-Greek catheter was left in place and selective coronary arteriography and left ventriculography was performed. Patient tolerated the procedure well. Femoral angiogram was performed and Angio-Seal was applied for hemostasis. No immediate complications were noted and patient was transferred to [facility] in a stable condition Conscious Sedation: Versed 1mg Fentanyl 25 g Duration 20minutes HEMODYNAMICS: Aortic pressure is about 130/70. Left ventricle end-diastolic pressure is about 10-15. There was no gradient across the aortic valve SELECTIVE CORONARY ARTERIOGRAPHY: LEFT MAIN: Normal length and free of any occlusive disease THE LEFT ANTERIOR DESCENDING CORONARY ARTERY: . Good caliber vessel in the proximal portion but becomes small in the distal distribution. Gives rise to small diagonal and septal branches. Free of any occlusive disease. THE LEFT CIRCUMFLEX AND IS CORONARY ARTERY: This is a moderate caliber vessel giving rise good-sized OM branch. The circumflex and its branches are free of occlusive disease. THE RIGHT CORONARY ARTERY: This is a dominant vessel and a good in size. There is ectasia involving the proximal and midportion without any significant focal occlusive disease LEFT VENTRICULOGRAPHY: . Not performed FINAL IMPRESSION: Coronary artery disease with a history of the proximal and mid RCA. No critical lesions noted in the entire coronary system PLAN: Maximum medical therapy and risk factor modification PROGNOSIS: . Good
[2021-03-23 10:52] VITALS: BP 174/72
[2021-03-23 11:27] VITALS: PULSE 54
== END 2021-03-23 11:28 | disposition home or self-care (01) ==
LOC: CATHCVL 06:05
PROVIDERS: ATTEND Internal Medicine Cardiovascular Disease
DX: I25.10 Atherosclerotic heart disease of native coronary artery without angina pectoris (principal); I48.0 Paroxysmal atrial fibrillation; I10 Essential (primary) hypertension; Z88.0 Allergy status to penicillin; Z88.2 Allergy status to sulfonamides; Z88.3 Allergy status to other anti-infective agents
CPT/HCPCS: 93458; C1894; C1769; J2250; J3010; J1644; J2001; Q9967

== ENCOUNTER → 2021-06-27 | Outpatient (CLI) | payer MEDICARE ==
--- NOTE | 2021-06-27 10:46 | XR ---
EXAMINATION TYPE: XR finger RT DATE OF EXAM: 06/27/2021 COMPARISON: NONE HISTORY: 71-year-old male M79.644, pain and swelling for 4 to 6 weeks. TECHNIQUE: 3 views coned-down right index finger FINDINGS: Prominent soft tissue swelling centered at the second DIP joint. There are juxta-articular erosions a long the radial margin and some subcortical cystic change at the radial aspect of the middle phalange al head. Faint soft tissue calcifications are suggested. Mild joint space narrowing. IMPRESSION: Soft tissue swelling with juxta-articular erosion at the second DIP joint and faint soft tissue calci fications. 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
== END | disposition home or self-care (01) ==
LOC: RADXRMAIN 08:48
PROVIDERS: ATTEND Family Medicine
DX: M79.644 Pain in right finger(s) (principal); M79.89 Other specified soft tissue disorders

== ENCOUNTER → 2021-09-12 | Outpatient (CLI) | payer MEDICARE ==
--- NOTE | 2021-09-12 11:36 | XR ---
EXAMINATION TYPE: XR tibia fibula LT DATE OF EXAM: 09/12/2021 CLINICAL HISTORY: Injury with pain and swelling TECHNIQUE: Two views of the left leg are obtained. COMPARISON: None. FINDINGS: There is no acute fracture or dislocation seen in the left tibia or fibula. The left knee and ankle joints appear within normal limits. Moderate to severe diffuse subcutaneous edema soft tis mike swelling mid to distal leg extending into the ankle. IMPRESSION: There is no acute fracture or dislocation seen in the left tibia or fibula.
== END | disposition home or self-care (01) ==
LOC: RADXRMAIN 10:10
PROVIDERS: ATTEND Family Medicine
DX: S89.92XA Unspecified injury of left lower leg, initial encounter (principal); M79.89 Other specified soft tissue disorders; M79.662 Pain in left lower leg; X58.XXXA Exposure to other specified factors, initial encounter

== ENCOUNTER 2024-05-17 01:58 | Observation (INO) | payer MEDICARE ==
[2024-05-17] MEDS: DILTIAZEM 5 MG/ML 5 ML VIAL IVP STA (01:22)
--- NOTE | 2024-05-17 01:27 | ED ---
Chest Pain HPI - General Chief Complaint: Chest Pain Stated Complaint: Afib RVR Time Seen by Provider: 05/17/24 01:05 EST Source: patient Mode of arrival: EMS Limitations: no limitations - History of Present Illness Initial Comments: Patient is a pleasant [age]-year-old male presenting today for palpitations and chest pain. Patient states about an hour prior to arrival he was sitting and watching TV and started to feel his heart race. Additionally he felt a tightness in the left side of his chest that radiated to his left armpit. Patient called EMS due to persistent symptoms. States that chest tightness has improved and is very mild now, substernal. Denies dizziness, lightheadedness, changes in vision, numbness, weakness, hemoptysis, cough, fevers, chills, abdominal pain, nausea, vomiting, diarrhea. Denies missed dosages of his medications. - Related Data Home Medications Medication Instructions Recorded Confirmed Aspirin EC [Ecotrin] 325 mg PO DAILY 02/26/21 03/23/21 Bisoprolol/Hydrochlorothiazide 1 tab PO QAM 02/26/21 03/23/21 [Bisoprolol/Hydrochlorothiazide 10-6.25 mg] Furosemide [Lasix] 20 mg PO QAM 02/26/21 03/23/21 Levothyroxine Sodium [Synthroid] 25 mcg PO QAM 02/26/21 03/23/21 Losartan Potassium 100 mg PO QAM 02/26/21 03/23/21 Potassium Chloride ER [K-Dur 20] 20 meq PO DAILY 02/26/21 03/23/21 Tamsulosin [Flomax] 0.4 mg PO DAILY 02/26/21 03/23/21 allopurinoL [Zyloprim] 100 mg PO QAM 02/26/21 03/23/21 Allergies Allergy/AdvReac Type Severity Reaction Status Date / Time Penicillins Allergy Anaphylaxis Verified 05/17/24 01:06 EST sulfamethoxazole Allergy Anaphylaxis Verified 05/17/24 01:06 EST [From Bactrim] trimethoprim [From Bactrim] Allergy Anaphylaxis Verified 05/17/24 01:06 EST Review of Systems ROS Statement: Those systems with pertinent positive or pertinent negative responses have been documented in the HPI. ROS Other: All systems not noted in ROS Statement are negative. EKG Findings - EKG Comments: EKG Findings:: Atrial fibrillation with RVR, rate 155 bpm, TX interval unable to measure, QRS 110 ms, QT/QTc 305/392 ms, normal axis, no ST elevations or depre ssions Past Medical History Past Medical History: Atrial Fibrillation, Hypertension, Myocardial Infarction ([place]) Last Myocardial Infarction Date:: 1995 History of Any Multi-Drug Resistant Organisms: None Reported Past Surgical History: Cholecystectomy, Heart Catheterization Past Psychological History: No Psychological Hx Reported Smoking Status: Never smoker Past Alcohol Use History: None Reported Past Drug Use History: None Reported General Exam - General Exam Comments Initial Comments: PE: CONSTITUTIONAL: No apparent distress, well appearing SKIN: Warm, dry, no jaundice, hives or petechiae EYES: Pupils are equally round, extraocular movements intact without nystagmus, clear conjunctiva, non-icteric sclera HENT: Normocephalic, atraumatic, moist mucus membranes, oropharynx clear without exudates NECK: , Full range of motion, normal appearance PULMONARY: Clear to auscultation without wheezes, rhonchi, or rales, normal excursion, no accessory muscle use and no stridor CARDIOVASCULAR: Irregularly irregular rhythm, tachycardic rate normal S1 and S2. No appreciated murmurs, rubs or gallops, the cardiac exam is limited by heart rate. Strong radial pulses with intact distal perfusion. No lower extremity edema, reproducible chest wall TTP at lower sternum GASTROINTESTINAL: Soft, active bowel sounds throughout, non-tender, non- distended, no palpable masses, no rebound or guarding. No hepatosplenomegaly MUSCULOSKELETAL: Extremities have no gross deformity, no edema, redness, or swelling. No calf swelling NEUROLOGIC:_a/o x 3, GCS 15, normal mentation and speech. Moves all extremities x 4 without motor or sensory deficit PSYCHIATRIC:_normal mood and affect, thought process is clear and linear Limitations: no limitations Course Vital Signs 05/17/24 05/17/24 05/17/24 01:02 EST 02:06 06:00 Temperature 97.9 F Pulse Rate 154 H 135 H 43 L Respiratory 17 18 17 Rate Blood Pressure 151/93 103/82 106/66 O2 Sat by Pulse 99 97 96 Oximetry Chest Pain MDM - MDM Was pt. sent in by a medical professional or institution (, PA, LADLE OPERATOR, urgent care, hospital, or half-way...) When possible be specific @ -No Did you speak to anyone other than the patient for history (EMS, parent, family, police, friend...)? What history was obtained from this source @ -No Did you review nursing and triage notes (agree or disagree)? Why? @ -I reviewed and agree with nursing and triage notes Were old charts reviewed (outside hosp., previous admission, EMS record, old EKG, old radiological studies, urgent care reports/EKG's, half-way records)? Report findings @Medical records reviewed Differential Diagnosis (chest pain, altered mental status, abdominal pain women, abdominal pain men, vaginal bleeding, weakness, fever, dyspnea, syncope, headache, dizziness, GI bleed, back pain, seizure, CVA, palpatations, mental health, musculoskeletal)? @Differential Palpitations Ventricular arrhythmias, atrial arrhythmias, myocardial infarction, anemia, thyrotoxicosis, electrolyte imbalance, hypokalemia, pulmonary disease, drugs, alcohol, anxiety, stress.... This is not meant to be an all-inclusive list. EKG interpreted by me (3pts min.). @ -As above X-rays interpreted by me (1pt min.). @Cardiomegaly, no pleural effusions, no consolidations CT interpreted by me (1pt min.). @ -None done U/S interpreted by me (1pt. min.). @ -None done What testing was considered but not performed or refused? (CT, X-rays, U/S, labs)? Why? @ -None What meds were considered but not given or refused? Why? @Considered giving metoprolol however patient's rate spontaneously improved on Cardizem drip Did you discuss the management of the patient with other professionals (professionals i.e. , PA, LADLE OPERATOR, lab, RT, psych nurse, social media content manager, putty maker, teacher, security police officer, classification case manager)? Give summary @ -No Was smoking cessation discussed for >3mins.? @ -No Was critical care preformed (if so, how long)? Yes, 35 minutes Were there social determinants of health that impacted care today? How? (Homelessness, low income, unemployed, alcoholism, drug addiction, transportation, low edu. Level, literacy, decrease access to med. care, [place] [facility], rehab)? @ -No Was there de-escalation of care discussed even if they declined (Discuss DNR or withdrawal of care, Hospice)? @ -No What co-morbidities impacted this encounter? (DM, HTN, Smoking, COPD, CAD, Cancer, CVA, ARF, Chemo, Hep., AIDS, mental health diagnosis, sleep apnea, morbid obesity)? @ CAD, atrial fibrillation Was patient admitted / discharged? Hospital course, mention meds given and route, prescriptions, significant lab abnormalities, going to OR and other pertinent info. @ Admission- This is a pleasant 74-year-old gentleman with a past medical history of atrial fibrillation on bisoprolol Eliquis presenting today for palpitations and chest tightness. Began an hour prior to arrival. A-fib with RVR on arrival. Checked patient's last echocardiogram, per cardiology consultation note with 55 to 60%. Will give 20 mg Cardizem bolus and start Cardizem drip. Will consider metoprolol if rate not controlled with Cardizem. Additionally we will plan for chest pain workup. Patient requesting an antacid. Aspirin, and antacid ordered for chest pain. Rate improved with Cardizem bolus however later to become tachycardic again so Cardizem drip was initiated. Chest pain resolved. Patient remained tachycardic, IV metoprolol ordered for prior to administering rate spontaneously improved to 50s-60s while on cardizem gtt. Repeat troponin did show mild elevation, 0.058, suspect type II ischemia 2/2 rate. Lipae 366, patient denies any abdominal pain/N/V, abdomen soft nontender on exam. Discussed plan for admission for obs. Patient agreeable with POC. Case dicussed with [facility], who can accept patient for admission. Patient admitted in stable condition, home meds ordered. Undiagnosed new problem with uncertain prognosis? @ -No Drug Therapy requiring intensive monitoring for toxicity (Heparin, Nitro, In sulin, Cardizem)? @Cardizem Were any procedures done? @ -No Diagnosis/symptom? @ -A-fib with RVR, chest pain Acute, or Chronic, or Acute on Chronic? @Acute Uncomplicated (without systemic symptoms) or Complicated (systemic symptoms)? @Complicated Side effects of treatment? @ -No Exacerbation, Progression, or Severe Exacerbation? @ -No Poses a threat to life or bodily function? How? (Chest pain, [place], AR, pneumonia, PE, COPD, DKA, ARF, appy, cholecystitis, CVA, Diverticulitis, Homicidal, Suicidal, threat to staff... and all critical care pts) @ Yes Disposition Clinical Impression: Atrial fibrillation with rapid ventricular response, Chest pain Disposition: ADMITTED IP TO THIS HOSP Condition: Good
[2024-05-17] MEDS: MAG HYDROX/AL HYDROX/SIMETH 30 ML, HYOSCYAMINE ELIXIR 10 ML, LIDOCAINE VISCOUS 2% 10 ML PO STA (01:31)
[2024-05-17 01:39] LABS: Basophils # (A) 0.1 k/uL (0-0.2); Basophils % (A) 1 %; Eosinophils # (A) 0.2 k/uL (0-0.7); Eosinophils % (A) 2 %; HCT 47.9 % (39.0-53.0); HGB 16.1 gm/dL (13.0-17.5); Lymphocytes % (A) 30 %; MCHC 33.5 g/dL (31.0-37.0); MCV 101.2 fL (80.0-100.0); Mean Platelet Volume 7.9; Monocytes # (A) 0.7 k/uL (0-1.0); Monocytes % (A) 7 %; Neutrophils # (A) 5.9 k/uL (1.3-7.7); Neutrophils % (A) 59 %; Platelet Count 220 k/uL (150-450); RBC 4.73 m/uL (4.30-5.90); RDW 12.1 % (11.5-15.5); WBC 10.2 k/uL (3.8-10.6)
[2024-05-17 01:45] LABS: ALT 24 U/L (4-49); AST 29 U/L (17-59); African American GFR (CKD) 49 (>60 ml/min/1.73 sqM); Albumin 4.6 g/dL (3.5-5.0); Alkaline Phosphatase 110 U/L (38-126); Amylase 75 U/L (30-110); Anion Gap 8 mmol/L; Blood Urea Nitrogen 43 mg/dL (9-20); Calcium 9.7 mg/dL (8.4-10.2); Carbon Dioxide 26 mmol/L (22-30); Chloride 104 mmol/L (98-107); Glucose 116 mg/dL (74-99); Lipase 366 U/L (23-300); Magnesium 2.2 mg/dL (1.6-2.3); Non-African American GFR(CKD) 42 (>60 ml/min/1.73 sqM); Potassium 3.7 mmol/L (3.5-5.1); Sodium 138 mmol/L (137-145); Total Bilirubin 0.6 mg/dL (0.2-1.3); Total Protein 7.5 g/dL (6.3-8.2)
[2024-05-17 01:54] LABS: NT-Pro-B-Type Natriuretic Pept 222 pg/mL
[2024-05-17 01:58] LABS: INR 0.9 (<1.2); Partial Thromboplastin Time 25.5 sec (22.0-30.0); Prothrombin Time 9.9 sec (10.0-12.5)
[~2024-05-17 01:58] MED LIST changes: -ALPRAZolam 0.25 MG TAB PO PRN; -ALPRAZolam 0.5 MG TAB PO PRN; -ASPIRIN 325 MG TAB PO STA; +DILTIAZEM 125 MG in SODIUM CHLORIDE 0.9% 100 ML IV SCH; -HEPARIN SODIUM,PORCINE 10,000 UNIT in SODIUM CHLORIDE 0.9% 1,000 ML IRRIGATION PRN; -HEPARIN SODIUM,PORCINE 2,500 UNIT in SODIUM CHLORIDE 0.9% 250 ML IRRIGATION PRN; -NITROGLYCERIN SL TABS 0.4 MG TAB SUBLINGUAL PRN; -SODIUM CHLORIDE 0.9% 1,000 ML in EMPTY BAG 1 BAG IV ONE
[2024-05-17] MEDS: SODIUM CHLORIDE 0.9% 500 ML 500 ML IV STA (02:02)
[2024-05-17] MEDS: ASPIRIN 81 MG PO STA (02:02)
--- NOTE | 2024-05-17 02:23 | XR ---
EXAMINATION TYPE: XR chest 2V DATE OF EXAM: 05/17/2024 COMPARISON: Chest x-ray February 26, 2021 HISTORY: Chest pain. TECHNIQUE: Frontal and lateral views of the chest are obtained. FINDINGS: Low lung volumes are noted. There is no focal air space opacity, pleural effusion, or pneum othorax seen. Cardiomegaly is redemonstrated. Overlying EKG leads again seen. Cholecystectomy clips n oted. The osseous structures are intact. IMPRESSION: Cardiomegaly without acute pulmonary process. [facility], , 05/17/2024 2:20 AM
[2024-05-17] MEDS: DILTIAZEM 125 MG in SODIUM CHLORIDE 0.9% 100 ML IV SCH (02:28)
[2024-05-17] MEDS ORDERED: NALOXONE 0.4 MG/ML 1 ML VIAL IV PRN (03:58)
[2024-05-17] MEDS ORDERED: traMADol 50 MG TAB PO PRN (03:58)
[2024-05-17] MEDS ORDERED: ACETAMINOPHEN TAB 325 MG TAB PO PRN (03:58)
[2024-05-17] MEDS: METOPROLOL TARTRATE 5 MG/5 ML VIAL IVP STA (05:09)
[2024-05-17] MEDS: FUROSEMIDE 20 MG TAB PO SCH (08:16)
[2024-05-17] MEDS: TAMSULOSIN 0.4 MG CAP.ER.24H PO SCH (08:16)
[2024-05-17] MEDS: FAMOTIDINE 20 MG TAB PO SCH (08:16)
[2024-05-17] MEDS: BISOPROLOL-HCTZ 10-6.25 MG 1 EACH TAB PO SCH (08:17)
[2024-05-17] MEDS: APIXABAN 5 MG TAB PO SCH (08:17)
[2024-05-17] MEDS: LOSARTAN 50 MG TAB PO SCH (08:17)
--- NOTE | 2024-05-17 08:27 | P.CRDCN ---
History of Present Illness Consult date: 05/17/24 History of present illness: This is a 74-year-old gentleman who sees Dr. Hernandez in the office on a regular basis with a past medical history significant for mild CAD based on heart catheterization in 2020 as well as paroxysmal atrial fibrillation and hypertension and dyslipidemia and borderline diabetes. He was in his usual state of health till yesterday when he was sitting at home watching TV and started experiencing heart racing/fluttering associated with discomfort in the middle of the chest with no radiation to the arm or neck or shoulders or back and no associated symptoms of any dizziness or lightheadedness or presyncope or syncope or any shortness of breath. He decided to come to the hospital so he drove himself to the hospital. He underwent an evaluation including an EKG showing atrial fibrillation with RVR and subsequently he was cardioverted to n ormal sinus mechanism. Beside that he underwent also a blood work showed mildly abnormal troponin and that was the second set of troponin. The first set came in to be unremarkable with the chest x-ray did not show any acute abnormalities. Currently he is in normal sinus mechanism and sinus bradycardia rate the patient stated that he was compliant with his medications as an outpatient. The physical examination is remarkable for regular rhythm with a soft systolic murmur at the right and left upper sternal border with clear breathing sounds bilaterally and no edema was noted in the lower extremities Assessment Atrial fibrillation with RVR in somebody with known paroxysmal atrial fibrillat ion Evidence of myocardial injury. The patient did have an episode of chest discomfort could be secondary to A-fib with RVR but severe CAD to be ruled out. Please note that he underwent a heart catheterization in 2020 came in to be unremarkable Multiple comorbid conditions including hypertension and dyslipidemia and borderline diabetes Plan Continue current medical regimen Obtain further cardiac enzymes including third set of troponin and follow-up with that Obtain further risk stratification including an echocardiogram with Doppler Further recommendation to follow Monitor the patient for additional 24 hours Past Medical History Past Medical History: Atrial Fibrillation, Hypertension, Myocardial Infarction ([place]) Last Myocardial Infarction Date:: 1995 History of Any Multi-Drug Resistant Organisms: None Reported Past Surgical History: Cholecystectomy, Heart Catheterization Past Psychological History: No Psychological Hx Reported Smoking Status: Never smoker Past Alcohol Use History: None Reported Past Drug Use History: None Reported Medications and Allergies Home Medications Medication Instructions Recorded Confirmed Type Aspirin EC [Ecotrin] 325 mg PO DAILY 02/26/21 03/23/21 History Bisoprolol/Hydrochlorothiazide 1 tab PO QAM 02/26/21 03/23/21 History [Bisoprolol/Hydrochlorothiazide 10-6.25 mg] Furosemide [Lasix] 20 mg PO QAM 02/26/21 03/23/21 History Levothyroxine Sodium [Synthroid] 25 mcg PO QAM 02/26/21 03/23/21 History Losartan Potassium 100 mg PO QAM 02/26/21 03/23/21 History Potassium Chloride ER [K-Dur 20] 20 meq PO DAILY 02/26/21 03/23/21 History Tamsulosin [Flomax] 0.4 mg PO DAILY 02/26/21 03/23/21 History allopurinoL [Zyloprim] 100 mg PO QAM 02/26/21 03/23/21 History Allergies Allergy/AdvReac Type Severity Reaction Status Date / Time Penicillins Allergy Anaphylaxis Verified 05/17/24 01:06 EST sulfamethoxazole Allergy Anaphylaxis Verified 05/17/24 01:06 EST [From Bactrim] trimethoprim [From Bactrim] Allergy Anaphylaxis Verified 05/17/24 01:06 EST Physical Exam Vitals: Vital Signs Temp Pulse Resp BP Pulse Ox 05/17/24 07:40 98.2 F 54 L 16 129/66 98 05/17/24 07:15 50 L 16 124/79 95 05/17/24 06:00 43 L 17 106/66 96 05/17/24 02:06 135 H 18 103/82 97 05/17/24 01:02 EST 97.9 F 154 H 17 151/93 99 Intake and Output 05/16/24 05/17/24 05/17/24 23:59 06:59 14:59 Intake Total Balance Intake: Intake, IV Titration Amount Diltiazem 125 mg In Sodium Chloride 0.9% 100 ml @ 5 MG/HR 5 mls/hr IV .Q24H [facility] Rx#:[id number] Other: Weight Results 05/17/24 01:26 EST 05/17/24 01:26 EST Cardiac Enzymes 05/17/24 05/17/24 05/17/24 Range/Units 01:26 EST 01:26 EST 04:50 AST 29 (17-59) U/L Troponin I <0.012 0.058 H* (0.000-0.034) ng/mL Coagulation 05/17/24 Range/Units 01:26 EST PT 9.9 L (10.0-12.5) sec APTT 25.5 (22.0-30.0) sec CBC 05/17/24 Range/Units 01:26 EST WBC 10.2 (3.8-10.6) k/uL RBC 4.73 (4.30-5.90) m/uL Hgb 16.1 (13.0-17.5) gm/dL Hct 47.9 (39.0-53.0) % Plt Count 220 (150-450) k/uL Comprehensive Metabolic Panel 05/17/24 Range/Units 01:26 EST Sodium 138 (137-145) mmol/L Potassium 3.7 (3.5-5.1) mmol/L Chloride 104 (98-107) mmol/L Carbon Dioxide 26 (22-30) mmol/L BUN 43 H (9-20) mg/dL Creatinine 1.57 H (0.66-1.25) mg/dL Glucose 116 H (74-99) mg/dL Calcium 9.7 (8.4-10.2) mg/dL AST 29 (17-59) U/L ALT 24 (4-49) U/L Alkaline Phosphatase 110 (38-126) U/L Total Protein 7.5 (6.3-8.2) g/dL Albumin 4.6 (3.5-5.0) g/dL Current Medications Generic Name Dose Route Start Last Admin Trade Name Freq PRN Reason Stop Dose Admin Acetaminophen 650 mg 05/17/24 03:58 Acetaminophen Tab 325 Mg Tab PO Q6HR PRN Mild Pain or Fever > 100.5 Apixaban 5 mg 05/17/24 09:00 05/17/24 08:17 Apixaban 5 Mg Tab PO 5 mg BID JOSE Administration Protocol Bisoprolol Fumarate 1 each 05/17/24 09:00 05/17/24 08:17 Bisoprolol-Hctz 10-6.25 Mg 1 Each Tab PO 1 each QAM JOSE Administration Famotidine 20 mg 05/17/24 09:00 05/17/24 08:16 Famotidine 20 Mg Tab PO 20 mg DAILY JOSE Administration Furosemide 20 mg 05/17/24 09:00 05/17/24 08:16 Furosemide 20 Mg Tab PO 20 mg QAM JOSE Administration Diltiazem HCl 125 mg/ Sodium 125 mls @ 5 mls/hr 05/17/24 02:30 05/17/24 06:56 Chloride IV 0 mg/hr .Q24H JOSE 0 mls/hr Infusion Protocol 5 MG/HR Losartan Potassium 100 mg 05/17/24 09:00 05/17/24 08:17 Losartan 50 Mg Tab PO 100 mg QAM JOSE Administration Naloxone HCl 0.2 mg 05/17/24 03:58 Naloxone 0.4 Mg/Ml 1 Ml Vial IV Q2M PRN Opioid Reversal Tamsulosin HCl 0.4 mg 05/17/24 09:00 05/17/24 08:16 Tamsulosin 0.4 Mg Cap.Er.24h PO 0.4 mg DAILY JOSE Administration Tramadol HCl 50 mg 05/17/24 03:58 Tramadol 50 Mg Tab PO Q6H PRN Moderate Pain (Scale 4 to 6) Intake and Output 05/16/24 05/17/24 05/17/24 23:59 06:59 14:59 Intake Total Balance Intake: Intake, IV Titration Amount Diltiazem 125 mg In Sodium Chloride 0.9% 100 ml @ 5 MG/HR 5 mls/hr IV .Q24H [facility] Rx#:[id number] Other: Weight 05/17/24 01:26 EST 05/17/24 01:26 EST
[2024-05-17] MEDS: LOPERAMIDE 2 MG CAP PO STA (17:12)
[2024-05-17] MEDS: ONDANSETRON 4 MG/2 ML VIAL IVP PRN (19:39)
--- NOTE | 2024-05-17 21:16 | P.HPIM ---
History of Present Illness H&P Date: 05/17/24 Chief Complaint: Heart racing Patient is a 74-year-old male with a past medical history of paroxysmal atrial fibrillation on anticoagulation with Eliquis, history of [place] status post cardiac catheterization in 2000, no PCI, hypertension and hypothyroidism presents to ER with complaints of heart beating fast. Patient did have associated shortness of breath and chest pressure. No radiation of the pain. No cough or sputum production. No headache or dizziness. Patient states that yesterday was his birthday. Denied any recent illnesses. No sick contacts. No recent travel. On admission patient found to be in A-fib with RVR with heart rate 154 and blood pressure 151 over 93 mmHg. Chest x-ray showed cardiomegaly without acute pulmonary process. EKG showed A-fib with RVR Lab data showed WBC 10.2 hemoglobin 16.1 and platelets 220 MCV 101.2 Sodium 138 potassium 3.7 chloride 104 BUN 43 and creatinine 1.57 and blood sugar 116 liver is not elevated Troponin 0.012, 0.058 and 0.058 Lipase level 366 and proBNP 222. Review of Systems Constitutional: Patient denies any fever or chills . No generalized weakness or weight loss. Abdomen: Patient denied nausea vomiting and diarrhea and abdominal pain. Cardiovascular: Patient denies any chest pain or short of breath no palpitations. Respiratory: patient denied any cough or sputum production. No shortness of breath Neurologic: Patient denied any numbness or tingling. no headache. Musculoskeletal: Patient denies any complaints of joint swelling or deformity. Skin: Negative Psychiatric: Negative Endocrine: No heat or cold intolerance. No recent weight gain. Genitourinary: No dysuria or hematuria. All other 14 point ROS negative except the above Past Medical History Past Medical History: Atrial Fibrillation, Hypertension, Myocardial Infarction ([place]) Last Myocardial Infarction Date:: 1995 History of Any Multi-Drug Resistant Organisms: None Reported Past Surgical History: Cholecystectomy, Heart Catheterization Past Psychological History: No Psychological Hx Reported Smoking Status: Never smoker Past Alcohol Use History: None Reported Past Drug Use History: None Reported - Past Family History Mother Family Medical History: Cancer Additional Family Medical History / Comment(s): Breast CA Father Family Medical History: Cancer Additional Family Medical History / Comment(s): Colon CA, removed large intestine Sister(s) Family Medical History: Cancer Additional Family Medical History / Comment(s): Breast Cancer Medications and Allergies Home Medications Medication Instructions Recorded Confirmed Type Bisoprolol/Hydrochlorothiazide 1 tab PO DAILY 02/26/21 05/17/24 History [Bisoprolol/Hydrochlorothiazide 10-6.25 mg] Furosemide [Lasix] 40 mg PO DAILY 02/26/21 05/17/24 History Levothyroxine Sodium [Synthroid] 25 mcg PO DAILY 02/26/21 05/17/24 History Losartan Potassium 100 mg PO DAILY 02/26/21 05/17/24 History allopurinoL [Zyloprim] 100 mg PO DAILY 02/26/21 05/17/24 History Apixaban [Eliquis] 5 mg PO BID 05/17/24 05/17/24 History Potassium Gluconate 99 mg PO DAILY 05/17/24 05/17/24 History Allergies Allergy/AdvReac Type Severity Reaction Status Date / Time Penicillins Allergy Anaphylaxis Verified 05/17/24 08:42 sulfamethoxazole Allergy Mouth Sores Verified 05/17/24 08:42 [From Bactrim] trimethoprim [From Bactrim] Allergy Mouth sores Verified 05/17/24 08:42 Physical Exam Vitals: Vital Signs Temp Pulse Resp BP Pulse Ox 05/17/24 09:30 50 L 18 123/70 95 05/17/24 07:40 98.2 F 54 L 16 129/66 98 05/17/24 07:15 50 L 16 124/79 95 05/17/24 06:00 43 L 17 106/66 96 05/17/24 02:06 135 H 18 103/82 97 05/17/24 01:02 EST 97.9 F 154 H 17 151/93 99 Intake and Output 05/16/24 05/17/24 05/17/24 23:59 06:59 14:59 Intake Total Balance Intake: Intake, IV Titration Amount Diltiazem 125 mg In Sodium Chloride 0.9% 100 ml @ 5 MG/HR 5 mls/hr IV .Q24H [facility] Rx#:[id number] Other: Weight PHYSICAL EXAMINATION: Patient is lying in the bed comfortably, no acute distress, awake alert and oriented.. HEENT: Normocephalic. Neck is supple. Pupils reactive. Nostrils clear. Oral cavity is moist. Neck reveals no JVD, carotid bruits, or thyromegaly. CHEST EXAMINATION: Trachea is central. Symmetrical expansion. Lung akhtar clear to auscultation and percussion. CARDIAC: Normal S1, S2 with no gallops. No murmurs ABDOMEN: Soft. Bowel sounds normal. No organomegaly. No abdominal bruits. Extremities: reveal no edema. No clubbing or cyanosis Neurologically awake, alert, oriented x3 with well-coordinated movements. No focal deficits noted Skin: No rash or skin lesions. Psychiatric: Coperative. Nonsuicidal Musculoskeletal: No joint swelling or deformity. Normal range of motion. Results CBC & Chem 7: 05/17/24 01:26 EST 05/17/24 01:26 EST Labs: Abnormal Lab Results - Last 24 Hours (Table) 05/17/24 05/17/24 05/17/24 Range/Units 01:26 EST 01:26 EST 01:26 EST MCV 101.2 H (80.0-100.0) fL PT 9.9 L (10.0-12.5) sec BUN 43 H (9-20) mg/dL Creatinine 1.57 H (0.66-1.25) mg/dL Glucose 116 H (74-99) mg/dL Troponin I (0.000-0.034) ng/mL Lipase 366 H (23-300) U/L 05/17/24 05/17/24 Range/Units 04:50 07:45 MCV (80.0-100.0) fL PT (10.0-12.5) sec BUN (9-20) mg/dL Creatinine (0.66-1.25) mg/dL Glucose (74-99) mg/dL Troponin I 0.058 H* 0.058 H* (0.000-0.034) ng/mL Lipase (23-300) U/L Thrombosis Risk Factor Assmnt - DVT/VTE Prophylaxis DVT/VTE Prophylaxis: Pharmacologic Prophylaxis ordered Assessment and Plan Assessment: Atrial fibrillation with rapid ventricular response Paroxysmal atrial fibrillation on anticoagulation with Eliquis Elevated troponin and chest discomfort. Possible type II [place]. Severe CAD cannot be ruled out Acute kidney injury. Creatinine 1.57 and baseline creatinine 1.2-1.4. CKD stage III History of DE status post cardiac catheterization 2020. No PCI. Mild elevated lipase level with no complaints of abdominal pain Hypertension Hypothyroidism BPH GI prophylaxis with Pepcid Plan: Patient will be continued on telemonitoring. Was started on Cardizem drip and patient will be started back on home medication including bisoprolol/hydro chlorothiazide. Cardiology is on board. 2D echocardiogram was ordered for risk stratification due to elevated troponin level. Current with home medications and follow-up TSH level. Follow-up closely Time with Patient: Greater than 30
[2024-05-17 21:29] VITALS: RESP 16
[2024-05-18 03:16] VITALS: TEMP 97.7
[2024-05-18] MEDS: LEVOTHYROXINE 25 MCG TAB PO SCH (06:20)
[2024-05-18 08:32] LABS: Basophils # (A) 0.1 k/uL (0-0.2); Basophils % (A) 1 %; Eosinophils # (A) 0.1 k/uL (0-0.7); Eosinophils % (A) 1 %; HCT 43.5 % (39.0-53.0); HGB 14.6 gm/dL (13.0-17.5); Lymphocytes # (A) 2.1 k/uL (1.0-4.8); Lymphocytes % (A) 16 %; MCH 34.5 pg (25.0-35.0); MCHC 33.7 g/dL (31.0-37.0); MCV 102.4 fL (80.0-100.0); Macrocytosis Slight; Mean Platelet Volume 8.1; Monocytes # (A) 0.4 k/uL (0-1.0); Monocytes % (A) 3 %; Neutrophils # (A) 10.3 k/uL (1.3-7.7); Neutrophils % (A) 79 %; Platelet Count 219 k/uL (150-450); RBC 4.25 m/uL (4.30-5.90); RDW 12.1 % (11.5-15.5); WBC 13.1 k/uL (3.8-10.6)
[2024-05-18 08:45] LABS: African American GFR (CKD) 48 (>60 ml/min/1.73 sqM); Anion Gap 6 mmol/L; Blood Urea Nitrogen 42 mg/dL (9-20); Carbon Dioxide 28 mmol/L (22-30); Chloride 104 mmol/L (98-107); Glucose 146 mg/dL (74-99); Non-African American GFR(CKD) 41 (>60 ml/min/1.73 sqM); Potassium 4.4 mmol/L (3.5-5.1); Sodium 138 mmol/L (137-145)
[2024-05-18] MEDS: allopurinoL 100 MG TAB PO SCH (09:01)
[2024-05-18] MEDS: FUROSEMIDE 40 MG TAB PO SCH (09:01)
[2024-05-18 14:39] VITALS: BP 110/52; PULSE 64
--- NOTE | 2024-05-18 15:57 | P.PN ---
Subjective Progress Note Date: 05/18/24 History of present illness: This is a 74-year-old gentleman who sees Dr. Hernandez in the office on a regular basis with a past medical history significant for mild CAD based on heart catheterization in 2020 as well as paroxysmal atrial fibrillation and hypertension and dyslipidemia and borderline diabetes. He was in his usual state of health till yesterday when he was sitting at home watching TV and started experiencing heart racing/fluttering associated with discomfort in the middle of the chest with no radiation to the arm or neck or shoulders or back and no associated symptoms of any dizziness or lightheadedness or presyncope or syncope or any shortness of breath. He decided to come to the hospital so he drove himself to the hospital. He underwent an evaluation including an EKG showing atrial fibrillation with RVR and subsequently he was cardioverted to normal sinus mechanism. Beside that he underwent also a blood work showed mildly abnormal troponin and that was the second set of troponin. The first set came in to be unremarkable with the chest x-ray did not show any acute abnormalities. Currently he is in normal sinus mechanism and sinus bradycardia rate the patient stated that he was compliant with his medications as an outpatient. The physical examination is remarkable for regular rhythm with a soft systolic murmur at the right and left upper sternal border with clear breathing sounds bilaterally and no edema was noted in the lower extremities 05/18 Patient is seen and examined. He has been in a sinus rhythm all night. Blood pressure 100/55, heart rate 55, pulse ox 97% on room air. Patient states that he has been on Lasix at home due to left ankle swelling which is not present now. Recommended that patient only uses as needed. Patient states that it was palpitations that caused him to come into the hospital. Discussed with patient starting him on flecainide 50 mg twice daily for 1 week and then come into the office for EKG and at that time we will determine if patient will continue this. Patient also provided a prescription for Cardizem oral to be taken when he feels palpitations to try and avoid hospitalization. Echocardiogram reveals EF of 50 to 55%, moderate MR, mild TR. The physical examination is remarkable for regular rhythm with a soft systolic murmur at the right and left upper sternal border with clear breathing sounds bilaterally and no edema was noted in the lower extremities Assessment Atrial fibrillation with RVR in somebody with known paroxysmal atrial fibrillation Evidence of myocardial injury. The patient did have an episode of chest discomfort could be secondary to A-fib with RVR but severe CAD to be ruled out. Please note that he underwent a heart catheterization in 2020 came in to be unremarkable Multiple comorbid conditions including hypertension and dyslipidemia and borderline diabetes Plan Continue current medical regimen Prescription for flecainide 50 mg every 12 hours to be taken for 1 week and patient follow-up with Dr. Aguirre in the office for EKG Cardizem 60 mg daily ordered for patient to be used as needed for palpitations. Patient is cleared for discharge and may follow-up in the office with Dr. Aguirre in 1 week. Nurse practitioner note has been reviewed, I agree with documented findings and plan of care. Patient was seen and examined. Objective - Vital Signs Vital signs: Vital Signs Temp 97.7 F 05/18/24 03:15 Pulse 55 L 05/18/24 09:00 Resp 16 05/18/24 09:00 BP 100/55 05/18/24 09:00 Pulse Ox 97 05/18/24 09:00 FiO2 Intake & Output 05/17/24 05/18/24 05/18/24 18:59 06:59 18:59 Intake Total 118 Balance 118 Weight 87.3 kg Intake: Oral 118 Other: Voiding Method Toilet # Voids 2 # Bowel Movements 2 - Labs CBC & Chem 7: 05/18/24 08:08 05/18/24 08:08 Labs: Abnormal Lab Results - Last 24 Hours (Table) 05/18/24 05/18/24 Range/Units 08:08 08:08 WBC 13.1 H (3.8-10.6) k/uL RBC 4.25 L (4.30-5.90) m/uL MCV 102.4 H (80.0-100.0) fL Neutrophils # 10.3 H (1.3-7.7) k/uL BUN 42 H (9-20) mg/dL Creatinine 1.60 H (0.66-1.25) mg/dL Glucose 146 H (74-99) mg/dL
--- NOTE | 2024-05-18 18:00 | CA ---
Transthoracic Echo Report Name: Corey Recinos Age: 74 Gender: M : 1950 Exam Date: 05/18/2024 10:51 Exam Location: [facility] Ht (in): 67 Wt (lb): 200 Ordering Physician: Gabo Fletcher MD ([id number]) Attending/Referring Phys: Desk Interviewer Ju Burden RDCS Procedure CPT: Indications: afib Cardiac Hx: Technical Quality: Fair Contrast 1: Total Dose (mL): Contrast 2: Total Dose (mL): MEASUREMENTS (Male / Female) Normal Values 2D ECHO LV Diastolic Diameter PLAX 3.7 cm 4.2 - 5.9 / 3.9 - 5.3 cm LV Systolic Diameter PLAX 2.8 cm IVS Diastolic Thickness 1.7 cm 0.6 - 1.0 / 0.6 - 0.9 cm LVPW Diastolic Thickness 1.7 cm 0.6 - 1.0 / 0.6 - 0.9 cm LV Relative Wall Thickness 0.9 RV Internal Dim ED PLAX 3.6 cm LA Volume 91.9 cm??? 18 - 58 / 22 - 52 cm??? LA Volume Index 43.8 cm???/m??? 16 - 28 cm???/m??? M-MODE Aortic Root Diameter MM 3.3 cm LA Systolic Diameter MM 4.8 cm LA Ao Ratio MM 1.4 AV Cusp Separation MM 1.8 cm DOPPLER AV Peak Velocity 172.0 cm/s AV Peak Gradient 11.8 mmHg AV Mean Velocity 114.2 cm/s AV Mean Gradient 6.2 mmHg AV Velocity Time Integral 36.1 cm LVOT Peak Velocity 125.7 cm/s LVOT Peak Gradient 6.3 mmHg LVOT Velocity Time Integral 26.7 cm MV Area PHT 3.7 cm??? Mitral E Point Velocity 80.4 cm/s Mitral A Point Velocity 39.7 cm/s Mitral E to A Ratio 2.0 MV Deceleration Time 202.4 ms MV E' Velocity 6.0 cm/s Mitral E to MV E' Ratio 13.4 TR Peak Velocity 257.9 cm/s TR Peak Gradient 26.6 mmHg Right Ventricular Systolic Press 30.2 mmHg FINDINGS Left Ventricle Severely increased left ventricular wall thickness. Left ventricular cavity size normal. No obvious regional wall motion abnormalities. Left ventricular ejection fraction is estimated at 50-55 %. Grade 1 diastolic dysfunction. Right Ventricle Mild right ventricular dilatation. Right ventricular systolic pressure within normal limits. Right Atrium Normal right atrial size. Left Atrium Severely increased left atrial volume. Mildly increased left atrial area. Mitral Valve Structurally normal mitral valve. No mitral stenosis. Mild mitral annular calcification. Moderate mitral regurgitation. Centrally directed mitral regurgitation jet. Aortic Valve Trileaflet aortic valve. No aortic valve stenosis or regurgitation. Aortic valve sclerosis. Tricuspid Valve Structurally normal tricuspid valve. Mild tricuspid regurgitation. Pulmonic Valve Structurally normal pulmonic valve. Pericardium No pericardial effusion. Aorta Normal size aortic root and proximal ascending aorta. CONCLUSIONS Normal LV function Moderate mitral regurgitation Mild tricuspid regurgitation Previewed by: Dr. Patricio Mayorga MD (Electronically Signed) Final Date: 18 May 2024 17:59
[2024-05-19] MEDS ORDERED: LOSARTAN 50 MG TAB PO SCH (09:00)
--- NOTE | 2024-06-06 13:35 | P.DS ---
Providers Date of admission: 05/17/24 04:02 Expected date of discharge: 05/18/24 Attending physician: Casie Coates Consults: 05/17/24 03:58 Consult Physician Routine Consulting Provider: Domo Ambrosio Consult Reason/Comments: A fib w/ RvR, chest pain Do you want consulting provider notified?: Yes, Notify in am Primary care physician: Ion [facility] Course: Discharge diagnosis Atrial fibrillation with rapid ventricular response. Currently maintained in sinus rhythm. Paroxysmal atrial fibrillation on anticoagulation with Eliquis Elevated troponin and chest discomfort. Possible type II NV. Severe CAD cannot be ruled out Acute kidney injury. Creatinine 1.57 and baseline creatinine 1.2-1.4. CKD stage III History of NV status post cardiac catheterization 2020. No PCI. Mild elevated lipase level with no complaints of abdominal pain Hypertension Hypothyroidism BPH GI prophylaxis with Pepcid Hospital course Patient is a 74-year-old male with a past medical history of paroxysmal atrial fibrillation on anticoagulation with Eliquis, history of NV status post cardiac catheterization in 2000, no PCI, hypertension and hypothyroidism presents to ER with complaints of heart beating fast. Patient did have associated shortness of breath and chest pressure. No radiation of the pain. No cough or sputum production. No headache or dizziness. Patient states that yesterday was his birthday. Denied any recent illnesses. No sick contacts. No recent travel. On admission patient found to be in A-fib with RVR with heart rate 154 and blood pressure 151 over 93 mmHg. Chest x-ray showed cardiomegaly without acute pulmonary process. EKG showed A-fib with RVR Lab data showed WBC 10.2 hemoglobin 16.1 and platelets 220 MCV 101.2 Sodium 138 potassium 3.7 chloride 104 BUN 43 and creatinine 1.57 and blood sugar 116 liver is not elevated Troponin 0.012, 0.058 and 0.058 Lipase level 366 and proBNP 222. 05/18/2024 Patient is awake alert and oriented x 3. Resting in the bed. Patient has been in sinus rhythm overnight. Blood pressure is stable. Patient was given prescription for Cardizem as needed for palpitations and also started on flecainide. Patient was advised to follow-up with cardiology office for repeat EKG. Lasix is on hold and losartan dose decreased to 50 mg every morning. 2D echocardiogram showed normal LV function. Moderate MR. Moderate TR. Otherwise patient is improved clinically. Cleared from cardiology standpoint. Laboratory data showed WBC 13.1 hemoglobin 14.6 and platelets 219 sodium 138 potassium 4.4 chloride 104 bicarb is 28 BUN 4020 creatinine 1.6 and blood sugar 146. TSH 3.56. PHYSICAL EXAMINATION: Patient is lying in the bed comfortably, no acute distress, awake alert and oriented.. HEENT: Normocephalic. Neck is supple. Pupils reactive. Nostrils clear. Oral cavity is moist. Neck reveals no JVD, carotid bruits, or thyromegaly. CHEST EXAMINATION: Trachea is central. Symmetrical expansion. Lung akhtar clear to auscultation and percussion. CARDIAC: Normal S1, S2 with no gallops. Positive systolic murmur ABDOMEN: Soft. Bowel sounds normal. No organomegaly. No abdominal bruits. Extremities: reveal no edema. No clubbing or cyanosis Neurologically awake, alert, oriented x3 with well-coordinated movements. No focal deficits noted Skin: No rash or skin lesions. Psychiatric: Coperative. Nonsuicidal Musculoskeletal: No joint swelling or deformity. Normal range of motion. Vital signs: Vital Signs Temp 97.7 F 05/18/24 03:15 Pulse 55 L 05/18/24 09:00 Resp 16 05/18/24 09:00 BP 100/55 05/18/24 09:00 Pulse Ox 97 05/18/24 09:00 FiO2 Intake & Output 05/17/24 05/18/24 05/18/24 18:59 06:59 18:59 Intake Total 118 Balance 118 Weight 87.3 kg Intake: Oral 118 Other: Voiding Method Toilet # Voids 2 # Bowel Movements 2 Total time taken greater than 35 minutes including 18 minutes for counseling and coordination of care. Patient Condition at Discharge: Good Plan - Discharge Summary Discharge Rx Participant: No New Discharge Prescriptions: New Diltiazem Oral [Cardizem Oral] 60 mg PO DAILY PRN #30 tablet PRN Reason: palpitations Flecainide [Tambocor] 50 mg PO Q12HR #60 tablet Losartan [Cozaar] 50 mg PO QAM #30 tab Continue Bisoprolol/Hydrochlorothiazide [Bisoprolol/Hydrochlorothiazide 10-6.25 mg] 1 tab PO DAILY allopurinoL [Zyloprim] 100 mg PO DAILY Levothyroxine Sodium [Synthroid] 25 mcg PO DAILY Apixaban [Eliquis] 5 mg PO BID Discontinued Furosemide [Lasix] 40 mg PO DAILY Losartan Potassium 100 mg PO DAILY Potassium Gluconate 99 mg PO DAILY Discharge Medication List Bisoprolol/Hydrochlorothiazide [Bisoprolol/Hydrochlorothiazide 10-6.25 mg] 1 tab PO DAILY 02/26/21 [History] Levothyroxine Sodium [Synthroid] 25 mcg PO DAILY 02/26/21 [History] allopurinoL [Zyloprim] 100 mg PO DAILY 02/26/21 [History] Apixaban [Eliquis] 5 mg PO BID 05/17/24 [History] Diltiazem Oral [Cardizem Oral] 60 mg PO DAILY PRN #30 tablet 05/18/24 [Rx] Flecainide [Tambocor] 50 mg PO Q12HR #60 tablet 05/18/24 [Rx] Losartan [Cozaar] 50 mg PO QAM #30 tab 05/18/24 [Rx] Follow up Appointment(s)/Referral(s): Arturo Aguirre MD [Medical Doctor] - 4 Weeks (Please keep your follow up tomorrow 05/19/24) Ion Cline DO [Primary Care Provider] - 1-2 days (Please call to schedule follow up appoitment) Patient Instructions/Handouts: A-fib (Atrial Fibrillation) (ED) Discharge Disposition: HOME SELF-CARE
== END 2024-05-18 14:00 | disposition home or self-care (01) ==
LOC: EC 01:58 → 3SCARD 04:02
PROVIDERS: ADMIT Hospitalist; ATTEND Hospitalist
DX: I48.0 Paroxysmal atrial fibrillation (principal); N17.9 Acute kidney failure, unspecified; I13.10 Hypertensive heart and chronic kidney disease without heart failure, with stage 1 through stage 4 chronic kidney disease, or unspecified chronic kidney disease; N18.30 Chronic kidney disease, stage 3 unspecified; E11.22 Type 2 diabetes mellitus with diabetic chronic kidney disease; I25.10 Atherosclerotic heart disease of native coronary artery without angina pectoris; E78.5 Hyperlipidemia, unspecified; I25.2 Old myocardial infarction; Z79.01 Long term (current) use of anticoagulants; Z79.82 Long term (current) use of aspirin; Z79.890 Hormone replacement therapy; Z79.899 Other long term (current) drug therapy; Z88.0 Allergy status to penicillin; Z88.2 Allergy status to sulfonamides
CPT/HCPCS: 96376; 96365; 96366; 96375; 99285; 36415; 93005; 93306; 83880; 80053; 80048; 84443; 82150; 83690; 83735; 84484; 85025 ×2; 85610; 85730; 71046; G0378 ×2; J2405

== ENCOUNTER → 2024-06-01 | Outpatient (CLI) | payer MEDICARE ==
[2024-06-01 15:09] LABS: BUN/Creat Ratio 16.07 Ratio (12.00-20.00); Blood Urea Nitrogen 24.1 mg/dL (9.0-27.0); Calcium 9.4 mg/dL (8.7-10.3); Carbon Dioxide 23.6 mmol/L (21.6-31.8); Chloride 104 mmol/L (96-109); Glucose 130 mg/dL (70-110); Potassium 4.5 mmol/L (3.5-5.5); Sodium 138 mmol/L (135-145)
== END | disposition home or self-care (01) ==
LOC: LABWHC1 10:39
PROVIDERS: ATTEND Internal Medicine Interventional Cardiology
DX: I10 Essential (primary) hypertension (principal)
CPT/HCPCS: 36415; 80048

== ENCOUNTER → 2024-06-09 | Outpatient (CLI) | payer MEDICARE ==
[2024-06-09 15:40] LABS: Chol/HDL Ratio 3.48 Ratio; LDL Cholesterol,Calculated 107.6 mg/dL (0.0-131.0)
== END | disposition home or self-care (01) ==
LOC: LABWHC1 10:15
PROVIDERS: ATTEND Family Medicine
DX: I10 Essential (primary) hypertension (principal); I25.10 Atherosclerotic heart disease of native coronary artery without angina pectoris; E78.5 Hyperlipidemia, unspecified; R73.9 Hyperglycemia, unspecified
CPT/HCPCS: 36415; 80061; 83036